=== PATIENT | male | born 1950 | race Caucasian/White ===

== ENCOUNTER → 2016-08-17 | Outpatient (CLI) | payer MEDICARE ==
--- NOTE | 2016-08-17 12:57 | ECHOF ---
Referral Reason:HTN I10, TIA G45.9 MEASUREMENTS -------- HEIGHT: 172.7 cm WEIGHT: 89.4 kg BP: RVIDd: 3.0 cm (< 3.3) IVSd: 1.3 cm (0.6 - 1.1) LVIDd: 4.8 cm (3.9 - 5.3) LVPWd: 1.2 cm (0.6 - 1.1) IVSs: 1.7 cm LVIDs: 3.5 cm LVPWs: 1.4 cm LA Diam: 4.2 cm (2.7 - 3.8) LAESV Index (A-L): 41.46 ml/m Ao Diam: 3.0 cm (2.0 - 3.7) AV Cusp: 1.4 cm (1.5 - 2.6) LA Diam: 4.3 cm (2.7 - 3.8) MV EXCURSION: 20.694 mm (> 18.000) MV EF SLOPE: 40 mm/s (70 - 150) EPSS: 0.5 cm AV maxP.57 mmHg AV meanP.88 mmHg RAP: 5.00 mmHg RVSP: 19.00 mmHg FINDINGS -------- Atrial fibrillation. This was a technically adequate study. There is mild concentric left ventricular hypertrophy. Overall left ventricular systolic function is low-normal with, an EF between 50 - 55 %. The right ventricle is normal in size. The right atrial size is normal. Mild aortic stenosis with peak/mean pressure gradient of 19.57mmHg / 9.88mmHg , the aortic valve area by continuity equation is 1.5cm. Mild mitral annular calcification present. Mild mitral regurgitation is present. Mild tricuspid regurgitation present. There is no evidence of pulmonary hypertension. The right ventricular systolic pressure, as measured by Doppler, is 19.00mmHg. There is no pulmonic regurgitation present. The aortic root size is normal. There is a trivial pericardial effusion present. CONCLUSIONS -------- 1. Atrial fibrillation. 2. The aortic root size is normal. 3. There is a trivial pericardial effusion present. 4. There is mild concentric left ventricular hypertrophy. 5. Overall left ventricular systolic function is low-normal with, an EF between 50 - 55 %. 6. Mild aortic stenosis with peak/mean pressure gradient of 19.57mmHg / 9.88mmHg , the aortic valve area by continuity equation is 1.5cm. 7. Mild mitral annular calcification present. 8. Mild mitral regurgitation is present. 9. Mild tricuspid regurgitation present. 10. There is no evidence of pulmonary hypertension. 11. The right ventricular systolic pressure, as measured by Doppler, is 19.00mmHg. BIOCHEMISTRY TECHNOLOGIST: Vonnie Orellana RDCS
--- NOTE | 2016-08-17 14:32 | US ---
EXAMINATION TYPE: US carotid duplex BILAT DATE OF EXAM: 08/17/2016 12:11 PM COMPARISON: NONE CLINICAL HISTORY: Episode of disorientation last about 45 minutes, TIA EXAM MEASUREMENTS: Grayscale, color Doppler, spectral Doppler imaging performed of the carotid arteri es. RIGHT: Peak Systolic Velocity (PSV) cm/sec ----- Right CCA: 88.6 ----- Right ICA: 54.7 ----- Right ECA: 78.9 ICA/CCA ratio: 0.6 RIGHT: End Diastole cm/sec ----- Right CCA: 24.6 ----- Right ICA: 22.1 ----- Right ECA: 17.8 LEFT: Peak Systolic Velocity (PSV) cm/sec ----- Left CCA: 74.0 ----- Left ICA: 76.3 ----- Left ECA: 96.3 ICA/CCA ratio: 1.0 LEFT: End Diastole cm/sec----- Left CCA: 28.9 ----- Left ICA: 76.3 ----- Left ECA: 96.3 VERTEBRALS (direction of flow): Right Vertebral: Antegrade Left Vertebral: Antegrade Atheromatous plaque is present at the carotid bulbs bilaterally. An arrhythmia is suspected. IMPRESSION: No hemodynamically significant stenosis of the proximal internal carotid arteries bilate rally by Doppler criteria, and indirect measurement of carotid stenosis. The carotid bulb on the r ight did show a systolic velocity drop to 36 cm/s at peak systole. Carotid CTA could be performed for additional evaluation as indicated. Criteria for Assigning % of Stenosis / Diameter reduction (Estimation based on the indirect measurements of the internal carotid artery velocities (ICA PSV). 1. Normal (no stenosis)=ICA PSV < 125 cm/s: ratio < 2.0: ICA EDV<40 cm/s. 2. Less than 50% stenosis=ICA PSV < 125 cm/s: ratio < 2.0: ICA EDV<40 cm/s. 3. 50 to 69% stenosis=ICA PSV of 125 to 230 cm/s: ration 2.0 ? 4.0: ICA EDV 40-100 cm/s. 4. Greater than 70% stenosis to near occlusion= ICA PSV > 230 cm/s: ratio > 4.0: ICA EDV > 100 cm/s. 5. Near occlusion= ICA PSV velocities may be low or undetectable: variable ratio and ICA EDV. 6. Total occlusion=unable to detect flow.
== END ==
LOC: RADECHMAIN 11:23
PROVIDERS: ATTEND Family Medicine
DX: I65.23 Occlusion and stenosis of bilateral carotid arteries (principal); I51.7 Cardiomegaly; I35.0 Nonrheumatic aortic (valve) stenosis; I08.1 Rheumatic disorders of both mitral and tricuspid valves; I10 Essential (primary) hypertension
CPT/HCPCS: 93306; 93880

== ENCOUNTER → 2016-08-20 | Outpatient (CLI) | payer MEDICARE ==
--- NOTE | 2016-08-20 14:30 | XR ---
EXAMINATION TYPE: XR cervical spine comp DATE OF EXAM: 08/20/2016 2:13 PM COMPARISON: NONE HISTORY: Radiculopathy Odontoid, frontal, lateral, and bilateral oblique views of the cervical spine are submitted. The odontoid is intact. There are no compression deformities. The prevertebral soft tissue structur es are within normal limits. Mild hypertrophic changes at C4-5 and C5-C6. Calcification soft tissue the neck compatible carotid artery calcification. Severe degenerative disc disease C6-C7. IMPRESSION: 1. Multilevel degenerative disc disease with severe changes at C6-C7. Consider follow-up MRI..
== END | disposition home or self-care (01) ==
LOC: RADXRMAIN 13:43
PROVIDERS: ATTEND Family Medicine
DX: M50.123 Cervical disc disorder at C6-C7 level with radiculopathy (principal)
CPT/HCPCS: 72050

== ENCOUNTER → 2017-01-06 | Outpatient (CLI) | payer MEDICARE ==
--- NOTE | 2017-01-06 21:56 | MR ---
EXAMINATION TYPE: MR cervical spine wo con DATE OF EXAM: 01/06/2017 6:39 PM COMPARISON: NONE HISTORY: neck pain with pain in both arms and swelling of Left Hand TECHNIQUE: Multiplanar, multisequence images of the cervical spine were acquired. C2-C3: No evidence for degenerative disc disease. No disc bulge/herniation or protrusion. No Canal stenosis. Foramina are patent bilaterally. C3-C4: No focal disc herniation or significant disc bulge is evident. No spinal canal stenosis presen t. Mild right foraminal narrowing from uncovertebral joint hypertrophy is present. C4-C5: Broad-based disc bulge is present with anterior thecal sac contact. Small central protrusion i s present with moderate anterior thecal sac compression and cord contact. Cord deformity is not ident ified. No spinal canal stenosis is present. There is moderate right and mild left foraminal narrowing . C5-C6: Broad-based disc bulge has moderate anterior thecal sac compression. Cord contact is present. Some cord flattening may be present. No AP spinal canal stenosis present. Moderate to severe bilatera l foraminal narrowing is present. Signal within the spinal cord is normal through this level. C6-C7: Broad-based disc bulge is present. This is greater into the left paracentral region in the rig ht paracentral region. This has moderate anterior thecal sac compression. Cord contact is present. So me cord flattening appears to be present. No spinal canal stenosis is present. Severe bilateral baldev inal narrowing is present. C7-T1: No evidence for degenerative disc disease. No disc bulge/herniation or protrusion. No Canal stenosis. Foramina are patent bilaterally. Cervical segments are intact. There is normal alignment. Cervical spinal cord is of normal signal. Craniovertebral junction relationships are within normal limits. IMPRESSION: 1. Disc bulging with cord contact and some cord flattening present C6-7 and left paracentral canal, C 5-6, C4-5. 2. Foraminal narrowing discussed above. 3. Disc desiccation throughout the cervical spine
== END | disposition home or self-care (01) ==
LOC: RADMRIMAIN 18:07
PROVIDERS: ATTEND Family Medicine
DX: M99.71 Connective tissue and disc stenosis of intervertebral foramina of cervical region (principal); M50.121 Cervical disc disorder at C4-C5 level with radiculopathy
CPT/HCPCS: 72141

== ENCOUNTER → 2017-01-17 | Outpatient (CLI) | payer MEDICARE ==
--- NOTE | 2017-01-17 15:35 | XR ---
EXAMINATION TYPE: XR hand complete LT DATE OF EXAM: 01/17/2017 CLINICAL HISTORY: Left hand joint pain for 6 to 8 weeks. TECHNIQUE: Frontal, lateral and oblique images of the left hand are obtained. COMPARISON: None. FINDINGS: There is no acute fracture/dislocation evident in the left hand. There is some spurring an d joint space loss first interphalangeal joint. Mild to moderate soft tissue swelling over second dig it is present. Mild soft tissue swelling third digit is seen. There is subchondral cyst in the scapho id suspected proximally. IMPRESSION: There is soft tissue swelling most prominent in the second finger noted.
== END ==
LOC: RADXRMAIN 15:12
PROVIDERS: ATTEND Family Medicine
DX: M79.89 Other specified soft tissue disorders (principal)

== ENCOUNTER → 2017-07-13 | Outpatient (CLI) | payer MEDICARE ==
--- NOTE | 2017-07-13 11:30 | US ---
EXAMINATION TYPE: US duplex aorta DATE OF EXAM: 07/13/2017 COMPARISON: NONE CLINICAL HISTORY: Z13.9 SCREENING. EXAM MEASUREMENTS: Abdominal Aorta: Proximal: 2.6 x 2.2 cm Mid: 1.9 x 1.9 cm Distal: 1.9 x 1.8 cm Bifurcation: right 1.3 left 1.2 technically difficult exam due to body habitus. IMPRESSION: Suboptimal study without ultrasound evidence for AAA.
== END | disposition home or self-care (01) ==
LOC: RADUSWWP 10:05
PROVIDERS: ATTEND Family Medicine
DX: Z13.6 Encounter for screening for cardiovascular disorders (principal)
CPT/HCPCS: 93979

== ENCOUNTER → 2018-06-05 | Outpatient (CLI) | payer MEDICARE ==
--- NOTE | 2018-06-05 16:04 | CT ---
EXAMINATION TYPE: CT facial bones w con DATE OF EXAM: 06/05/2018 COMPARISON: None HISTORY: Left sided cystic mass. CT DLP: 763 mGycm Automated exposure control for dose reduction was used. CONTRAST: CT scan of the facial bones is performed with IV Contrast, patient injected with 100 mL of Isovue M30 0. TECHNIQUE: CT scan of the sinuses is performed without contrast, axial images are obtained, coronal r eformatted images are also reviewed. FINDINGS: There is an expansile complex fluid attenuated mass centered within the left maxillary sinu s that creates cortical thinning without breakthrough of the inferior wall, medial wall, and lateral wall. This creates mass effect upon the left nasopharynx and muscles of mastication. There is also im pression upon the inferior orbital wall although the globes and extraocular muscles remain symmetric. This mass measures approximately 3.5 x 4.6 x 6.1 cm in transverse by anterior posterior by craniocau errol dimension. A There is also calcified portion medially. There is scant mucosal thickening within the left ethmoid sinuses. Remaining paranasal sinuses and vi sualized portions of the mastoid air cells are well aerated. IMPRESSION: Large expansile complex fluid attenuated mass expanding the left maxillary sinus with mass effect and obstruction of the left nasopharynx and inferior orbital wall. Primary differential consideration is for a complex mucocele.
== END | disposition home or self-care (01) ==
LOC: RADCTMAIN 14:22
PROVIDERS: ATTEND Otolaryngology
DX: J39.2 Other diseases of pharynx (principal); J32.0 Chronic maxillary sinusitis
CPT/HCPCS: 70487; Q9967

== ENCOUNTER 2021-07-07 09:18 | Day surgery (SDC) | payer MEDICARE ==
[2021-07-03 10:53] VITALS: BMI 30.7
[~2021-07-07 09:18] MED LIST: LIDOCAINE 1% (10MG/ML) FOR IV START INTRADERMA PRN
[2021-07-07 09:48] VITALS: TEMP 97.9
[2021-07-07] MEDS: LACTATED RINGERS 1,000 ML IV SCH ×2 (10:10→10:26)
[2021-07-07] MEDS ORDERED: PROPOFOL 10 MG/ML 20 ML VIAL IV ONE (10:28)
[2021-07-07] MEDS ORDERED: LIDOCAINE 1% INJ 10MG/ML (20 ML MDV) ONE (10:28)
--- NOTE | 2021-07-07 10:35 | P.GSHP ---
History of Present Illness H&P Date: 07/07/21 Chief Complaint: Colon cancer screening 71-year-old male here today for colonoscopy. No bowel related complaints. No family history of colon cancer. Last colonoscopy normal. Past Medical History Past Medical History: Hyperlipidemia, Hypertension, Osteoarthritis (OA), Prostate Disorder, Thyroid Disorder Additional Past Medical History / Comment(s): "EKG is always abnormal", enlarged prostate History of Any Multi-Drug Resistant Organisms: None Reported Past Surgical History: Back Surgery, Hernia Repair Additional Past Surgical History / Comment(s): colonoscopy Past Anesthesia/Blood Transfusion Reactions: No Reported Reaction Smoking Status: Former smoker - Past Family History Father Family Medical History: Cancer Additional Family Medical History / Comment(s): prostate Medications and Allergies Home Medications Medication Instructions Recorded Confirmed Type ALPRAZolam [Xanax] 0.5 mg PO HS PRN 07/03/21 07/03/21 History Dutasteride [Avodart] 0.5 mg PO HS 07/03/21 07/03/21 History HYDROcodone/APAP 10-325MG [[place] 1 tab PO BID PRN 07/03/21 07/03/21 History 10-325] Levothyroxine Sodium [Synthroid] 50 mcg PO DAILY 07/03/21 07/07/21 History Metoprolol Tartrate [Lopressor] 25 mg PO BID 07/03/21 07/07/21 History Simvastatin [Zocor] 40 mg PO DAILY 07/03/21 07/03/21 History Tamsulosin [Flomax] 0.4 mg PO DAILY 07/03/21 07/03/21 History Valsartan/Hydrochlorothiazide 1 each PO DAILY 07/03/21 07/03/21 History [Valsartan-Hctz 320-25 mg Tab] hydroCHLOROthiazide 25 mg PO DAILY 07/03/21 07/03/21 History Allergies Allergy/AdvReac Type Severity Reaction Status Date / Time No Known Allergies Allergy Verified 07/03/21 10:39 Surgical - Exam Vital Signs Temp Pulse Resp BP Pulse Ox 97.9 F 56 L 18 156/79 96 07/07/21 09:44 07/07/21 09:44 07/07/21 09:44 07/07/21 09:44 07/07/21 09:44 Physical exam: General: Well-developed, well-nourished HEENT: Normocephalic, sclerae nonicteric Abdomen: Nontender, nondistended Extremities: No edema Neuro: Alert and oriented Assessment and Plan (1) Colon cancer screening Narrative/Plan: Will proceed with colonoscopy at this time Current Visit: Yes Status: Acute Code(s): Z12.11 - ENCOUNTER FOR SCREENING FOR MALIGNANT NEOPLASM OF COLON SNOMED Code(s): 223139699
--- NOTE | 2021-07-07 10:45 | P.PCN ---
Date of Procedure: 07/07/21 Procedure(s) Performed: PREOPERATIVE DIAGNOSIS: Colon cancer screening POSTOPERATIVE DIAGNOSIS: Diverticulosis PROCEDURE: Colonoscopy ANESTHESIA: MAC SURGEON: Tj Boateng M.D. SPECIMENS: None ENDOSCOPIC PROCEDURE: The patient was placed on the endoscopy table in the left decubitus position. The Olympus colonoscope was inserted into the anus and passed under direct visualization to the base of the cecum. The appendiceal orifice was visualized. From that point the scope was slowly withdrawn inspe cting all surfaces carefully. There were no neoplastic inflammatory or polypoid lesions throughout the cecum, ascending, transverse, descending, sigmoid and rectum. There was mild left-sided diverticulosis noted. Digital rectal examination was normal. Prostatic examination was normal. The patient was taken to the recovery room in stable condition per anesthesia guidelines. RECOMMENDATIONS: Resume diet. Follow-up colonoscopy 10 years.
[2021-07-07 10:56] VITALS: BP 113/61; PULSE 45; RESP 16
== END 2021-07-07 11:33 | disposition home or self-care (01) ==
LOC: ORWHC2ENDO 09:18
PROVIDERS: ATTEND Surgery
DX: Z12.11 Encounter for screening for malignant neoplasm of colon (principal); K57.30 Diverticulosis of large intestine without perforation or abscess without bleeding; E78.5 Hyperlipidemia, unspecified; I10 Essential (primary) hypertension; M19.90 Unspecified osteoarthritis, unspecified site; N40.0 Benign prostatic hyperplasia without lower urinary tract symptoms; F41.9 Anxiety disorder, unspecified; E07.9 Disorder of thyroid, unspecified; Z87.891 Personal history of nicotine dependence; Z80.42 Family history of malignant neoplasm of prostate; Z79.890 Hormone replacement therapy; Z79.899 Other long term (current) drug therapy
CPT/HCPCS: J2001; J2704; G0121

== ENCOUNTER → 2022-04-30 | Outpatient (CLI) | payer MEDICARE ==
--- NOTE | 2022-05-01 10:10 | CA ---
Transthoracic Echo Report Name: Aashish Montelongo Age: 72 Gender: M : 1950 Exam Date: 04/30/2022 11:32 Exam Location: [place] [facility] Ht (in): 68 Wt (lb): 200 Ordering Physician: Randy Prado MD Attending/Referring Phys: [id number], Johan [employer] Consultant Silvia Shelby RDCS Procedure CPT: Indications: I35.0 NONRHEUMATIC AORTIC STENOSIS Cardiac Hx: Technical Quality: Fair Contrast 1: Total Dose (mL): Contrast 2: Total Dose (mL): MEASUREMENTS (Male / Female) Normal Values 2D ECHO LV Diastolic Diameter PLAX 4.3 cm 4.2 - 5.9 / 3.9 - 5.3 cm LV Systolic Diameter PLAX 2.7 cm IVS Diastolic Thickness 1.6 cm 0.6 - 1.0 / 0.6 - 0.9 cm LVPW Diastolic Thickness 1.8 cm 0.6 - 1.0 / 0.6 - 0.9 cm LV Relative Wall Thickness 0.8 RV Internal Dim ED PLAX 3.3 cm LVOT Diameter 2.0 cm LA Volume 64.4 cm??? 18 - 58 / 22 - 52 cm??? M-MODE Aortic Root Diameter MM 3.0 cm LA Systolic Diameter MM 4.5 cm LA Ao Ratio MM 1.5 AV Cusp Separation MM 0.9 cm DOPPLER AV Peak Velocity 430.5 cm/s AV Peak Gradient 74.1 mmHg AV Mean Velocity 313.7 cm/s AV Mean Gradient 44.7 mmHg AV Velocity Time Integral 96.0 cm AI Peak Velocity 336.6 cm/s AI Peak Gradient 45.3 mmHg AI Pressure Half Time 833.6 ms LVOT Peak Velocity 88.2 cm/s LVOT Peak Gradient 3.1 mmHg LVOT Velocity Time Integral 21.6 cm LVOT Stroke Volume 70.7 cm??? LVOT Stroke Volume Index 34.6 ml/m??? LVOT Cardiac Index 1672.9 cm???/min???m??? AV Area Cont Eq vti 0.7 cm??? AV Area Cont Eq pk 0.7 cm??? MV Area PHT 2.7 cm??? Mitral E Point Velocity 88.6 cm/s Mitral A Point Velocity 119.4 cm/s Mitral E to A Ratio 0.7 MV Deceleration Time 286.2 ms MV E' Velocity 5.1 cm/s Mitral E to MV E' Ratio 17.5 TR Peak Velocity 169.1 cm/s TR Peak Gradient 11.4 mmHg Right Ventricular Systolic Press 16.4 mmHg FINDINGS Left Ventricle Moderately increased left ventricular wall thickness. No obvious regional wall motion abnormalities. Left ventricular ejection fraction is estimated at 55 %. Right Ventricle Mild right ventricular dilatation. Right ventricular systolic pressure within normal limits. Right Atrium Normal right atrial size. Left Atrium Mildly increased left atrial volume. Mildly increased left atrial area. Mitral Valve Mild mitral annular calcification. Mitral valve thickened. [id number] mitral regurgitation. Aortic Valve Severe aortic stenosis with a peak velocity of 4 m/s, peak gradient 74 mmHg, mean gradient 45 mmHg, and estimated aortic valve area of 0.7cm???. Mild aortic regurgitation. Tricuspid Valve Structurally normal tricuspid valve. Mild tricuspid regurgitation. Pulmonic Valve Trace pulmonic regurgitation. Pericardium No pericardial effusion. Aorta Normal size aortic root and proximal ascending aorta. CONCLUSIONS Normal left ventricular dimension and systolic function Severe aortic stenosis [id number] mitral regurgitation Previewed by: Dr. Kamran Santos MD (Electronically Signed) Final Date: 01 May 2022 10:09
== END | disposition home or self-care (01) ==
LOC: RADECHMAIN 11:25
PROVIDERS: ATTEND Family Medicine
DX: I08.3 Combined rheumatic disorders of mitral, aortic and tricuspid valves (principal)
CPT/HCPCS: 93306

== ENCOUNTER 2023-04-13 09:37 | Day surgery (SDC) | payer MEDICARE, OTHER ==
[2023-04-08 12:37] VITALS: BMI 31.9
[~2023-04-13 09:37] MED LIST changes: +ALPRAZolam 0.25 MG TAB PO PRN; +ALPRAZolam 0.5 MG TAB PO PRN; +ASPIRIN 325 MG TAB PO ONE; +ATORVASTATIN 80 MG TAB PO ONE; +HEPARIN SODIUM,PORCINE (1 ML) 2,500 UNIT in SODIUM CHLORIDE 0.9% 250 ML IRRIGATION PRN; +HEPARIN SODIUM,PORCINE 10,000 UNIT in SODIUM CHLORIDE 0.9% 1,000 ML IRRIGATION PRN; -LIDOCAINE 1% (10MG/ML) FOR IV START INTRADERMA PRN; +NITROGLYCERIN SL TABS 0.4 MG TAB SUBLINGUAL PRN; +SODIUM CHLORIDE 0.9% 1,000 ML in EMPTY BAG 1 BAG IV SCH
[2023-04-13 10:04] VITALS: RESP 16; TEMP 97.9
[2023-04-13] MEDS ORDERED: SODIUM CHLORIDE 0.9% 1,000 ML IV ONE ×2 (10:05→10:41)
[2023-04-13 10:12] LABS: Basophils % (A) 1 %; Eosinophils # (A) 0.3 k/uL (0-0.7); Eosinophils % (A) 4 %; HGB 15.7 gm/dL (13.0-17.5); Lymphocytes # (A) 2.1 k/uL (1.0-4.8); Lymphocytes % (A) 37 %; MCH 33.3 pg (25.0-35.0); MCHC 35.6 g/dL (31.0-37.0); MCV 93.6 fL (80.0-100.0); Mean Platelet Volume 7.2; Monocytes # (A) 0.4 k/uL (0-1.0); Monocytes % (A) 7 %; Neutrophils # (A) 2.7 k/uL (1.3-7.7); Neutrophils % (A) 47 %; Platelet Count 285 k/uL (150-450); RBC 4.69 m/uL (4.30-5.90); RDW 12.4 % (11.5-15.5); WBC 5.7 k/uL (3.8-10.6)
[2023-04-13] MEDS ORDERED: VERAPAMIL 2.5 MG/ML 2 ML AMP ONE (10:17)
[2023-04-13 10:22] LABS: African American GFR (CKD) >90 (>60 ml/min/1.73 sqM); Anion Gap 10 mmol/L; Blood Urea Nitrogen 27 mg/dL (9-20); Carbon Dioxide 28 mmol/L (22-30); Chloride 98 mmol/L (98-107); Glucose 126 mg/dL (74-99); Non-African American GFR(CKD) >90 (>60 ml/min/1.73 sqM); Sodium 136 mmol/L (137-145)
[2023-04-13] MEDS ORDERED: fentaNYL (PF) 50 MCG/ML 2 ML AMP ONE ×2 (10:27→10:35)
[2023-04-13] MEDS ORDERED: MIDAZOLAM 2 MG/2 ML VIAL IVP ONE ×2 (10:30→10:37)
[2023-04-13] MEDS: fentaNYL (PF) 50 MCG/ML 2 ML AMP IVP ONE ×2 (10:30→10:33)
[2023-04-13] MEDS: MIDAZOLAM 2 MG/2 ML VIAL IVP ONE ×2 (10:31→10:33)
[2023-04-13 10:36] LABS: Potassium 3.8 mmol/L (3.5-5.1)
[2023-04-13] MEDS ORDERED: fentaNYL (PF) 50 MCG/ML 2 ML AMP IVP ONE (10:36)
--- NOTE | 2023-04-13 10:53 | P.TEE ---
Description of Procedure(s): Procedure performed: Transesophageal Echocardiogram with color flow doppler, pulsed wave doppler and continuous wave doppler, moderate conscious sedation Moderate conscious sedation: Moderate conscious sedation was supplied with direct supervision of myself using Versed and Fentanyl. Complications: none Indications: Aortic stenosis PROCEDURE: After the risks, benefits and alternatives of the above mentioned procedure was explained in detail with the patient, informed consent was obtained. Patient was brought to the lab in a fasting state. Patient was given IV Versed and Fentanyl for sedation. The throat was sprayed with Hurricane to anesthetize the throat. A lubricated Omni probe was then introduced into the esophagus and stomach and multiple views were obtained. 2D echo with color flow doppler, pulsed wave doppler and continuous wave doppler was utilized. There was some color flow artifact however able to perform the CRESENCIO. Agitated saline bubbles were injected to assess for any intra-atrial shunt. The probe was then removed. Patient tolerated the procedure well. Patient was transferred to the post procedure area in stable and satisfactory condition. FINDINGS: 1. The aortic valve is tricuspid with severe aortic stenosis with mean gradient of 54mmHg and max gradient of 76mmHg. DANIEL by planimetry of 0.8cm2. There is mild aortic regurgitation 2. The mitral valve appears be normal with mild mitral regurgitation. 3. Tricuspid valve is normal with mild tricuspid regurgitation. 4. The interatrial septum is intact. No evidence of PFO. 5. Left atrial appendage is free of clot. 6. Left ventricular ejection fraction 55-60%
[2023-04-13] MEDS ORDERED: LIDOCAINE 1% INJ 10MG/ML (5 ML VIAL-PF) SQ ONE (11:05)
[2023-04-13] MEDS ORDERED: VERAPAMIL SYRINGE (5 MG/10 ML) INTRAARTER ONE (11:06)
[2023-04-13] MEDS ORDERED: HEPARIN SODIUM 1,000 UN/ML (10ML VL) IV ONE (11:07)
[2023-04-13] MEDS ORDERED: IOPAMIDOL-370 100ML BTL INJ ONE (11:12)
[2023-04-13] MEDS ORDERED: ASPIRIN 81 MG PO PRN (11:22)
[2023-04-13] MEDS ORDERED: HYDROcodone/APAP 10-325MG 1 EACH TAB PO PRN (11:22)
[2023-04-13] MEDS ORDERED: RX INFO: IV CONTRAST WAS GIVEN 1 EACH MISC MISCELLANE PRN (11:23)
[2023-04-13] MEDS ORDERED: SODIUM CHLORIDE 0.9% 1,000 ML IV SCH (11:30)
--- NOTE | 2023-04-13 13:47 | P.CARDCATH ---
Description of Procedure: PROCEDURES PERFORMED: Left heart catheterization, bilateral coronary angiography, ultrasound guided arterial access INDICATION: Severe aortic stenosis CONSENT:I have discussed the risks, benefits and alternative therapies for the above-mentioned procedure and for both sedation/analgesia as well as necessary blood product administration, if indicated, as they pertain to this patient. The patient has indicated understanding and acceptance of the risks and procedures discussed. PROCEDURE: After the risks, benefits and alternatives of the above mentioned procedure explained in detail with the patient, informed consent was obtained. Patient was taken to the catheterization lab and prepped and draped in usual fashion. Ultrasound guidance was used to assess for arterial access. 1% lidocaine was used to anesthetize the right radial artery. A 6-Maldivian sheath was placed in the right radial artery using modified Seldinger technique and ultrasound guidance. Left coronary angiography was performed with a 5-Maldivian JL 3.5 catheter and right coronary angiography was performed with a 6-Maldivian AR2 catheter in various views. Using a 5Fr FR5 catheter and a J wire, the valve was able to be crossed and pressure meaurments were obtained. The right radial sheath was removed and a TR band was placed with hemostasis achieved. The patient tolerated the procedure well. Patient was transported back to the post catheterization holding area in stable condition. Conscious Sedation: Patient was monitored under the direct supervision of myself for conscious sedation using Versed and fentanyl for a total duration of 13 minutes HEMODYNAMICS: Aorta: 129/78 LV: 185/5, LVEDP 15, peak to peak gradient of around 60 with some variability with frequent PVCs, mean gradient 38mmHg SELECTIVE CORONARY ARTERIOGRAPHY: LEFT MAIN: The left main is a large caliber vessel which bifurcates into the LAD and a raums. There is a 30% left main stenosis. LEFT ANTERIOR DESCENDING CORONARY ARTERY: LAD is a large caliber vessel which wraps around to the apex. There are mild luminal irregularities RAMUS INTERMEDIUS: The ramus is a small to moderate caliber vessel without significant stenosis ANAMALOUS CIRCUMFLEX ARTERY FROM THE RIGHT CORONARY CUSP: Crcumflex is a moderate caliber vessel without significant stenosis. RIGHT CORONARY ARTERY: The right coronary artery is a moderate to large caliber vessel which gives off the PDA and PLV and is dominant. There are mild luminal irregularities FINAL IMPRESSION: 1. 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 Severe aortic stenosis PLAN: 1. Aggressive risk factor modification per most recent ACC/AHA guidelines. 2. Followup in the office in 1-2 weeks
[2023-04-13 15:22] VITALS: BP 145/74; PULSE 60
[2023-04-13] MEDS ORDERED: FINASTERIDE 5 MG TAB PO SCH (21:00)
[2023-04-14] MEDS ORDERED: LEVOTHYROXINE 50 MCG TAB PO SCH (06:30)
[2023-04-14] MEDS ORDERED: allopurinoL 100 MG TAB PO SCH (09:00)
[2023-04-14] MEDS ORDERED: hydroCHLOROthiazide 25 MG TAB PO SCH (09:00)
[2023-04-14] MEDS ORDERED: TAMSULOSIN 0.4 MG CAP.ER.24H PO SCH (09:00)
[2023-04-14] MEDS ORDERED: ATORVASTATIN 40 MG TAB PO SCH (09:00)
[2023-04-14] MEDS ORDERED: VALSARTAN 160 MG TAB PO SCH (09:00)
== END 2023-04-13 15:21 | disposition home or self-care (01) ==
LOC: CATHCVL 09:37
PROVIDERS: ATTEND Internal Medicine
DX: I08.3 Combined rheumatic disorders of mitral, aortic and tricuspid valves (principal); I25.10 Atherosclerotic heart disease of native coronary artery without angina pectoris; I10 Essential (primary) hypertension; E78.5 Hyperlipidemia, unspecified; E03.9 Hypothyroidism, unspecified; I49.3 Ventricular premature depolarization; F17.210 Nicotine dependence, cigarettes, uncomplicated; Z79.891 Long term (current) use of opiate analgesic; Z79.83 Long term (current) use of bisphosphonates; Z79.899 Other long term (current) drug therapy
CPT/HCPCS: 93458; 93312; 93320; 93325; 80048; 85025; C1769; C1894; J2250; J2001; J3010; J1644; Q9967; 76937

== ENCOUNTER → 2023-07-05 | Outpatient (CLI) | payer MEDICARE, OTHER ==
[2023-07-05 10:22] LABS: Basophils % (A) 1 %; Eosinophils # (A) 0.1 k/uL (0-0.7); Eosinophils % (A) 1 %; HGB 15.4 gm/dL (13.0-17.5); Lymphocytes # (A) 1.1 k/uL (1.0-4.8); Lymphocytes % (A) 21 %; MCH 32.9 pg (25.0-35.0); MCHC 35.8 g/dL (31.0-37.0); Mean Platelet Volume 7.1; Monocytes # (A) 0.4 k/uL (0-1.0); Monocytes % (A) 6 %; Neutrophils # (A) 3.9 k/uL (1.3-7.7); Neutrophils % (A) 69 %; Platelet Count 309 k/uL (150-450); RBC 4.67 m/uL (4.30-5.90); RDW 12.2 % (11.5-15.5); WBC 5.6 k/uL (3.8-10.6)
[2023-07-05 10:34] LABS: ALT 53 U/L (4-49); AST 37 U/L (17-59); African American GFR (CKD) >90 (>60 ml/min/1.73 sqM); Albumin 4.2 g/dL (3.5-5.0); Albumin/Globulin Ratio 1.6; Alkaline Phosphatase 64 U/L (38-126); Anion Gap 9 mmol/L; Blood Urea Nitrogen 23 mg/dL (9-20); Calcium 9.4 mg/dL (8.4-10.2); Carbon Dioxide 30 mmol/L (22-30); Chloride 98 mmol/L (98-107); Globulin 2.6 g/dL; Glucose 136 mg/dL (74-99); Non-African American GFR(CKD) >90 (>60 ml/min/1.73 sqM); Sodium 137 mmol/L (137-145); Total Bilirubin 0.8 mg/dL (0.2-1.3); Total Protein 6.8 g/dL (6.3-8.2)
[2023-07-05 10:42] LABS: NT-Pro-B-Type Natriuretic Pept 460 pg/mL
[2023-07-05 10:48] LABS: Partial Thromboplastin Time 23.9 sec (22.0-30.0); Prothrombin Time 11.1 sec (10.0-12.5)
[2023-07-05 11:11] LABS: Appearance,Urine Clear (Clear); Bacteria,Urine Rare /hpf; Bilirubin,Urine Negative (Negative); Blood,Urine Trace (Negative); Color,Urine Colorless; Glucose,Urine (UA) Negative (Negative); Ketones,Urine Negative (Negative); Leukocyte Esterase,Urine Negative (Negative); Mucus,Urine Rare /hpf; Nitrite,Urine Negative (Negative); Protein,Urine Negative (Negative); RBC,Urine <1 /hpf (0-5); Specific Gravity,Urine 1.007 (1.001-1.035); Squamous Epithelial Cell,Urine <1 /hpf (0-4); Urobilinogen,Urine <2.0 mg/dL (<2.0)
[2023-07-05 11:12] LABS: Magnesium 1.9 mg/dL (1.6-2.3)
[2023-07-05 18:41] LABS: Chol/HDL Ratio 3.62 Ratio; LDL Cholesterol,Calculated 74.6 mg/dL (0.0-131.0)
[2023-07-05 19:33] LABS: Hepatitis A Antibody IgM Nonreactive; Hepatitis B Core IgM Nonreactive; Hepatitis B Surface Antigen Nonreactive; Hepatitis C IgG Antibody Nonreactive
--- NOTE | 2023-07-05 22:02 | CT ---
EXAMINATION TYPE: CT TAVR Planning DATE OF EXAM: 07/05/2023 HISTORY: 73-year-old male I35.1, TAVR planning. CT DLP: 2407.1 mGycm Automated Exposure Control for Dose Reduction was Utilized. CONTRAST: CT scan of the chest, abdomen and pelvis is performed with IV Contrast, patient injected with 125ml m L of Isovue 370. COMPARISON: TECHNIQUE: Helical imaging obtained through the chest, abdomen and pelvis during arterial phase filiberto nuvia administration of radiographic contrast intravenously. FINDINGS: See report from [facility] regarding preprocedural planning CHEST: Lower Neck and Thyroid: No significant findings Lungs: Several subtle mosaic attenuation suggests small airways disease. No consolidation or pleural effusion. Central Airway: No significant findings Pleura: No significant findings Pulmonary Arteries: The right and left main pulmonary arteries are enlarged measuring up to 3.1 cm. F indings suggest underlying pulmonary hypertension. Heart and Pericardium: No significant findings Lymph Nodes: No significant findings Mediastinum & Esophagus: No significant findings ABDOMEN/PELVIS: Please note arterial phase of the imaging limits detailed evaluation of the solid abdominal organs. Liver: Diffusely diminished attenuation and mild thyromegaly at 18.6 cm. Portal venous system is kwan nt. No biliary ductal dilatation. Spleen: No significant findings Kidneys: Punctate 3 mm nonobstructive left renal calculus and a couple on the right measuring up to 4 mm. A few bilateral renal cortical cysts measuring up to 2.1 cm on the right and 3.2 cm on the left. Adrenal Glands: No significant findings Pancreas: No significant findings Gallbladder: No significant findings Bowel and Mesentery: Small hiatal hernia including some mesenteric fat. No dilated small bowel, free fluid, or free air. Normal appendix. Generalized colonic diverticulosis more moderate within the prox imal to mid sigmoid colon. No pericolonic inflammatory change seen.r Lymph Nodes: No significant findings Urinary Bladder: No significant findings Pelvic Organs: Prostate gland enlarged at 4.6 cm wide. Slightly trabeculated bladder wall suggesting chronic bladder outlet obstruction and bladder wall hypertrophy. Patulous bilateral neural canals wit h a fat-containing indirect right inguinal hernia. 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 Moderate spondylotic change lower cindy mbar spine. Mild degenerative change of both hips. Degenerative changes bilateral SI joints. Other: Moderate atherosclerotic calcifications abdominal aorta. Other Lines/Tubes/Devices/Hardware: None IMPRESSION: 1. Findings which suggest some underlying small airways disease. Correlate for underlying pulmonary a rterial hypertension as well. 2. Hepatomegaly at 18.6 cm with a moderate to severe hepatic steatosis. 3. A couple nonobstructing bilateral renal calculi measuring up to 4 mm. 4. Generalized colonic diverticulosis, greatest in the sigmoid colon. 5. Prostatomegaly of 4.6 cm wide. Correlate with PSA values. Slightly trabeculated bladder wall may r eflect chronic bladder outlet obstruction. Fat-containing indirect right inguinal hernia.
== END | disposition home or self-care (01) ==
LOC: LABWHC1 09:31
PROVIDERS: ATTEND Thoracic Surgery (Cardiothoracic Vascular Surgery)
DX: Z01.818 Encounter for other preprocedural examination (principal); I35.1 Nonrheumatic aortic (valve) insufficiency; I35.0 Nonrheumatic aortic (valve) stenosis; E11.9 Type 2 diabetes mellitus without complications; E87.8 Other disorders of electrolyte and fluid balance, not elsewhere classified; N28.9 Disorder of kidney and ureter, unspecified; K76.0 Fatty (change of) liver, not elsewhere classified; N20.0 Calculus of kidney; K57.30 Diverticulosis of large intestine without perforation or abscess without bleeding; N40.0 Benign prostatic hyperplasia without lower urinary tract symptoms; N32.89 Other specified disorders of bladder; K40.90 Unilateral inguinal hernia, without obstruction or gangrene, not specified as recurrent; E78.5 Hyperlipidemia, unspecified; E07.9 Disorder of thyroid, unspecified; R58 Hemorrhage, not elsewhere classified; R35.0 Frequency of micturition; Z79.899 Other long term (current) drug therapy; Z79.01 Long term (current) use of anticoagulants
CPT/HCPCS: 94150; 83880; 80061; 80053; 80074; 84443; 83735; 85025; 85610; 85730; 81001; 87086; 83036; 71275; 36415 ×2; 74174; Q9967

== ENCOUNTER → 2023-07-25 | Outpatient (CLI) | payer MEDICARE, OTHER | END | disposition home or self-care (01) | LOC: LABWHC1 16:02 | PROVIDERS: ATTEND Thoracic Surgery (Cardiothoracic Vascular Surgery) | DX: I45.10 Unspecified right bundle-branch block (principal); I51.7 Cardiomegaly; I49.8 Other specified cardiac arrhythmias; R94.31 Abnormal electrocardiogram [ECG] [EKG]; R07.9 Chest pain, unspecified | CPT/HCPCS: 36415; 93005 ==

== ENCOUNTER → 2023-08-05 | Outpatient (CLI) | payer MEDICARE, OTHER ==
[2023-08-05 11:10] LABS: Partial Thromboplastin Time 22.7 sec (22.0-30.0); Prothrombin Time 11.2 sec (10.0-12.5)
[2023-08-05 15:56] LABS: Basophils # (A) 0.06 X 10*3/uL (0.00-0.10); Basophils % (A) 1.4 %; Eosinophils # (A) 0.12 X 10*3/uL (0.04-0.35); Eosinophils % (A) 2.8 %; HCT 42.9 % (39.6-50.0); HGB 15.5 g/dL (13.0-17.0); Lymphocytes # (A) 0.96 X 10*3/uL (0.90-5.00); Lymphocytes % (A) 22.7 %; MCH 32.9 pg (27.0-32.0); MCHC 36.1 g/dL (32.0-37.0); MCV 91.1 FL (80.0-97.0); Mean Platelet Volume 9.5 FL (9.5-12.2); Monocytes % (A) 9.5 %; NRBC Per 100 WBC 0 X 10*3/uL (0.00-0.01); Neutrophils # (A) 2.66 X 10*3/uL (1.80-7.70); Neutrophils % (A) 63.1 %; Platelet Count 238 X 10*3/uL (140-440); RBC 4.71 X 10*6/uL (4.40-5.60); RDW 12.3 % (11.5-14.5); WBC 4.22 X 10*3/uL (4.50-10.00)
[2023-08-05 16:15] LABS: ALT 33 U/L (10-49); AST 26 U/L (14-35); Albumin 4.2 g/dL (3.8-4.9); Albumin/Globulin Ratio 1.83 Ratio (1.60-3.17); Alkaline Phosphatase 54 U/L (41-126); BUN/Creat Ratio 26.22 Ratio (12.00-20.00); Blood Urea Nitrogen 23.6 mg/dL (9.0-27.0); Calcium 9.8 mg/dL (8.7-10.3); Carbon Dioxide 27.2 mmol/L (21.6-31.8); Chloride 101 mmol/L (96-109); Globulin 2.3 g/dL (1.6-3.3); Glucose 138 mg/dL (70-110); Potassium 3.5 mmol/L (3.5-5.5); Sodium 142 mmol/L (135-145); Total Bilirubin 0.5 mg/dL (0.3-1.2); Total Protein 6.5 g/dL (6.2-8.2)
== END | disposition home or self-care (01) ==
LOC: LABPAT 10:11
PROVIDERS: ATTEND Thoracic Surgery (Cardiothoracic Vascular Surgery)
DX: Z01.812 Encounter for preprocedural laboratory examination (principal); I35.0 Nonrheumatic aortic (valve) stenosis; Z79.899 Other long term (current) drug therapy; Z79.01 Long term (current) use of anticoagulants
CPT/HCPCS: 36415; 80053; 85025; 85610; 85730; 86850; 86900; 86901

== ENCOUNTER 2023-08-10 07:53 | Inpatient (IN) | payer MEDICARE, OTHER ==
[~2023-08-10 07:53] MED LIST changes: -ALPRAZolam 0.25 MG TAB PO PRN; -ALPRAZolam 0.5 MG TAB PO PRN; -ASPIRIN 325 MG TAB PO ONE; -ATORVASTATIN 80 MG TAB PO ONE; +GLYCOPYRROLATE 0.2 MG/ML 2 ML VIAL ONE; -HEPARIN SODIUM,PORCINE (1 ML) 2,500 UNIT in SODIUM CHLORIDE 0.9% 250 ML IRRIGATION PRN; -HEPARIN SODIUM,PORCINE 10,000 UNIT in SODIUM CHLORIDE 0.9% 1,000 ML IRRIGATION PRN; +HEPARIN SODIUM,PORCINE 10,000 UNIT/ML 1 ML VIAL ONE; +HYDROmorphone (PF) 1 MG/ML ONE; +LIDOCAINE 1% INJ 10MG/ML (20 ML MDV) ONE; +NEOSTIGMINE 1 MG/ML 10 ML VIAL ONE; -NITROGLYCERIN SL TABS 0.4 MG TAB SUBLINGUAL PRN; +NOREPINEPHRINE 1 MG/ML 4 ML VIAL IV ONE; +PROPOFOL 10 MG/ML 20 ML VIAL IV ONE; +PROTAMINE SULFATE 10 MG/ML 5 ML VIAL ONE; +ROCURONIUM 10 MG/ML (5 ML VIAL) IV ONE; -SODIUM CHLORIDE 0.9% 1,000 ML in EMPTY BAG 1 BAG IV SCH; +SUCCINYLCHOLINE CHLORIDE 200 MG/10 ML VIAL IV ONE; +fentaNYL (PF) 50 MCG/ML 2 ML AMP ONE
[2023-08-10] MEDS ORDERED: TRANEXAMIC ACID 2,000 MG in SODIUM CHLORIDE 0.9% 80 ML IV PRN (08:00)
[2023-08-10] MEDS ORDERED: PROTAMINE SULFATE 250 MG in EMPTY BAG 1 BAG IV PRN (08:00)
[2023-08-10] MEDS ORDERED: CLEVIDIPINE BUTYRATE 25 MG in EMPTY BAG 1 BAG IV PRN (08:00)
[2023-08-10] MEDS ORDERED: ELECTROLYTE-A SOLUTION 1,000 ML with POTASSIUM CHLORIDE 100 MEQ, MAGNESIUM SULFATE 16 M... IV PRN (08:00)
[2023-08-10] MEDS ORDERED: SODIUM CHLORIDE 0.9% 500 ML 500 ML INTRAARTER PRN (08:00)
[2023-08-10] MEDS ORDERED: INSULIN REGULAR 100 UNIT in SODIUM CHLORIDE 0.9% 100 ML IV PRN (08:00)
[2023-08-10] MEDS ORDERED: NITROGLYCERIN-D5W PMX 25 MG/250 ML BTL IV PRN (08:00)
[2023-08-10] MEDS: METOPROLOL TARTRATE 25 MG TAB PO ONE (08:17)
[2023-08-10] MEDS: ATORVASTATIN 10 MG TAB PO ONE (08:17)
[2023-08-10] MEDS: ASPIRIN 325 MG TAB PO ONE (08:17)
[2023-08-10] MEDS: CLOPIDOGREL 75 MG TAB PO ONE (08:17)
[2023-08-10 08:29] LABS: Glucose,Whole Blood 138 mg/dL (70-110)
[2023-08-10] MEDS: SODIUM CHLORIDE 0.9% 1,000 ML IV ONE (08:36)
[2023-08-10] MEDS: IOPAMIDOL-370 100ML BTL INJ ONE ×2 (11:44)
--- NOTE | 2023-08-10 12:01 | P.ANPRN ---
Procedure Note - Anesthesia - CRESENCIO Intraop Pre Bypass CRESENCIO Intraop - Anesthesia Indication: aortic stenosis Date of Procedure: 08/10/23 Pre-operative Diagnosis: Aortic Stenosis Post-operative Diagnosis: Aortic Stenosis s/p TAVR Surgeon: Damian Gilmore Left Ventricle: 35-40%. Mild LVH, LVOT 21, Ejection Fraction: Other Regional Wall Motion Abnormalities: None Left Ventricle Hypertrophy: Yes (mild) R. Ventricle Function: Normal Aortic Stenosis: Severe Aortic Regurgitation: None Other Findings: 0.4cm2, mean 43, peak 66 Mitral Stenosis: None Mitral Regurgitation: Moderate Tricuspid Stenosis: None Tricuspid Regurgitation: None Pulmonic Stenosis: None Pulmonic Regurgitation: None R. Atrial Dilation: No R. Atrial PFO: Yes L. Atrial Dilation: No Aortic Dissection: No Aortic Calcification: None Plural Effusion: None
--- NOTE | 2023-08-10 12:03 | P.ANPRN ---
Procedure Note - Anesthesia - CRESENCIO Intraop Post Bypass CRESENCIO Intraop Post Bypass Procedure Performed: TAVR Left Ventricle: unchanged Ejection Fraction: Other (35-40) Regional Wall Motion Abnormalities: None Right Ventricle: unchanged R. Ventricle Function: Normal Aortic Valve: mean 6, prosthetic valve in place. moderate Posterior perivalvular leak, decreasing with time and protamine Mitral Valve: Unchanged Tricuspid: Unchanged Pulmonic: Unchanged Aortic Dissection: No
--- NOTE | 2023-08-10 12:38 | P.OP ---
Date of Procedure: 08/10/23 Preoperative Diagnosis: Symptomatic tricuspid calcific aortic stenosis Postoperative Diagnosis: Same Procedure(s) Performed: The cutaneous transfemoral transcatheter aortic valve implantation with 29 mm Medtronic Evolute FX Corevalve Implants: 29 mm Medtronic Evolute FX Corevalve Anesthesia: GETA Surgeon: Damian Gilmore (Cardiovascular surgeon) Literacy Tutor #1: Hitesh Telles (plate sensitizer) Literacy Tutor #2: Casimiro Gonzalez (Nurse practitioner) Pathology: none sent Condition: stable Disposition: PACU Indications for Procedure: 89-year-old male with symptomatic calcific tricuspid aortic stenosis. Patient is low risk for surgical valve replacement. Patient was seen by both cardiology and cardiac surgery and options were discussed. It was my recommendation that the patient strongly considered surgical aortic valve replacement. Patient opted for transcatheter aortic valve replacement. He was then seen in the high risk valve clinic by the heart team and scheduled for transcatheter aortic valve replacement. Operative Findings: Aortic valve was heavily calcified. There was a significant gradient across the aortic valve with a mean gradient of 45. The valve was implanted with a depth of 6 on the right and 2 on the left. There was moderate valvular leak. 2 balloon dilatations were performed in the leak was reduced to mild. Patient had significant AV block preoperatively and this remained unchanged. Description of Procedure: Patient was brought to the catheterization laboratory, placed supine on the table and anesthetized and intubated. The anterior torso and bilateral groins were sterilely prepped and draped. Right subclavian vein was punctured and a guidewire threaded into the right atrium. Screw-in transvenous pacer wire was placed in the apex of the right ventricle and brought out on the skin and tested. We had good capture at 1 V. Was secured to skin with 2-0 silk suture ligatures. Bilateral femoral arterial access was obtained under ultrasound guidance. A long 6-Ecuadorean sheath was placed on the left into the descending thoracic aorta. 7-Ecuadorean sheath was placed on the right and 2 Perclose devices were then placed. Sheath was then upsized to an 8-[place]cuadorean sheath. A pigtail catheter was placed through the left femoral sheath and positioned in the non- coronary sinus of Valsalva. 8-Ecuadorean sheath on the right was exchanged for a 14-Ecuadorean sheath over a stiff wire. Patient was systemically heparinized and a CTs were maintained greater than 250. Aortic valve was crossed the right pigtail catheter positioned at the apex of the left ventricle. Transvalvular gradients were measured. Stiff wire was placed into the apex of the ventricle and 29 Medtronic Evolute FX Corevalve brought up on the field. A 14-Ecuadorean sh eath was exchanged for the Korbel delivery system and it was advanced across the aortic valve. We had difficulty expanding the Korbel properly due to tight aortic valve. Was decided to recapture the core valve pull it out and replace the 14-Ecuadorean sheath and perform a predilatation. Aortic valve was predilated with a 24 Tyshak balloon we then replaced the Korbel delivery system were able to successfully deployed a core valve 6 on the Right and 2 on the Left. CRESENCIO Demonstrated Moderate Paravalvular Leak and the Core Valve Appeared to Be under Expanded. The Valve Delivery System Was Exchanged for the 14-Ecuadorean Sheath and We Postdilated the Valve with a 23 True Balloon. There was Still Some Residual Paravalvular Leak and We Repeated and Dilatation with a 24 Tyshak Balloon. The valve appeared fully expanded now and there was only mild paravalvular leak. Was felt at this point that further intervention presented later risks and benefits and is decided to accept the implant as well as. Heparin was now reversed with protamine. Femoral hemostasis was obtained by cardiology.
[2023-08-10] MEDS ORDERED: ALPRAZolam 0.5 MG TAB PO PRN (12:57)
[2023-08-10] MEDS ORDERED: Potassium Replacement Protocol 1 EACH MISC MISCELLANE PRN (12:57)
[2023-08-10] MEDS ORDERED: Magnesium Replacement Protocol 1 EACH MISC MISCELLANE PRN (12:57)
[2023-08-10] MEDS ORDERED: CALCIUM GLUCONATE IN NACL 2 GM in SALINE 1 100ML.BAG IVPB PRN (12:57)
[2023-08-10] MEDS ORDERED: HYDROcodone/APAP 10-325MG 1 EACH TAB PO PRN (12:57)
[2023-08-10] MEDS ORDERED: IPRATROPIUM-ALBUTEROL 3 ML NEB INHALATION PRN (12:57)
[2023-08-10] MEDS ORDERED: ONDANSETRON 4 MG/2 ML VIAL IVP PRN (12:57)
[2023-08-10 13:15] LABS: African American GFR (CKD) >90 (>60 ml/min/1.73 sqM); Anion Gap 12 mmol/L; Blood Urea Nitrogen 26 mg/dL (9-20); Calcium 8.7 mg/dL (8.4-10.2); Carbon Dioxide 27 mmol/L (22-30); Chloride 101 mmol/L (98-107); Glucose 154 mg/dL (74-99); Non-African American GFR(CKD) >90 (>60 ml/min/1.73 sqM); Potassium 3.3 mmol/L (3.5-5.1); Sodium 140 mmol/L (137-145)
--- NOTE | 2023-08-10 13:40 | XR ---
EXAM: XR chest 1V portable CLINICAL INDICATION:Male, 73 years old with history of Post Operative Cardiac Surgery; [facility] COMPARISON: None. TECHNIQUE: Chest single view. FINDINGS: Lines/tubes/devices: Status post TAVR. EKG leads and wires overlie the chest. There is a right subcla vian approach lead, likely a temporary transvenous pacer, which terminates left of midline likely wit hin the RV. Cardiomediastinum: Cardiac silhouette appears mildly to moderately enlarged. Mildly tortuous partially calcified aorta. Vasculature: Mild central congestion. Lungs/pleura: No consolidation, sizeable effusion, or visible pneumothorax. However the extreme inferior right cost ophrenic angle and lateral aspect of the left costophrenic angle are excluded from the [id number]. Minimal linear atelectasis versus scarring in the left mid to lower lung zones. Bones/soft tissues: Bony thorax appears grossly intact as seen. Mild degenerative changes of the shoulders and spine. Reg ional soft tissues appear unremarkable. IMPRESSION: 1. Status post TAVR. 2. Cardiomegaly with mild pulmonary vascular congestion. No sizable pleural effusion or pneumothorax identified. 3. Minimal subsegmental atelectasis versus scarring in the left mid to lower lung zones.
[2023-08-10 15:56] LABS: Basophils # (A) 0.1 k/uL (0-0.2); Basophils % (A) 1 %; Eosinophils % (A) 1 %; HCT 43.4 % (39.0-53.0); HGB 15.2 gm/dL (13.0-17.5); Lymphocytes # (A) 0.8 k/uL (1.0-4.8); Lymphocytes % (A) 11 %; MCH 32.9 pg (25.0-35.0); MCV 93.9 fL (80.0-100.0); Mean Platelet Volume 7.4; Monocytes # (A) 0.4 k/uL (0-1.0); Monocytes % (A) 5 %; Neutrophils # (A) 6.2 k/uL (1.3-7.7); Neutrophils % (A) 81 %; Platelet Count 214 k/uL (150-450); RBC 4.62 m/uL (4.30-5.90); RDW 12.9 % (11.5-15.5); WBC 7.6 k/uL (3.8-10.6)
[2023-08-10] MEDS: POTASSIUM BICARBONATE/CIT AC 20 MEQ TABLET.EFF PO ONE (16:54)
[2023-08-10] MEDS: LACTATED RINGERS 1,000 ML IV SCH ×2 (17:03→17:26)
[2023-08-10] MEDS: TAMSULOSIN 0.4 MG CAP.ER.24H PO SCH (20:42)
[2023-08-10] MEDS: allopurinoL 100 MG TAB PO SCH (20:42)
[2023-08-10] MEDS: FINASTERIDE 5 MG TAB PO SCH (20:42)
[2023-08-10] MEDS: ACETAMINOPHEN TAB 325 MG TAB PO PRN (23:47)
[2023-08-10] MEDS: SENNOSIDES-DOCUSATE SODIUM 1 EACH TAB PO SCH (23:50)
[2023-08-10] MEDS: HEPARIN SODIUM,PORCINE 5,000 UNIT/ML 1 ML VIAL SQ SCH (23:51)
[2023-08-11 05:09] LABS: Basophils # (A) 0.1 k/uL (0-0.2); Basophils % (A) 1 %; Eosinophils # (A) 0.1 k/uL (0-0.7); Eosinophils % (A) 1 %; HCT 39.9 % (39.0-53.0); HGB 13.7 gm/dL (13.0-17.5); Lymphocytes # (A) 0.9 k/uL (1.0-4.8); Lymphocytes % (A) 11 %; MCH 32.7 pg (25.0-35.0); MCHC 34.3 g/dL (31.0-37.0); MCV 95.4 fL (80.0-100.0); Mean Platelet Volume 7.4; Monocytes # (A) 0.5 k/uL (0-1.0); Monocytes % (A) 6 %; Neutrophils # (A) 6.9 k/uL (1.3-7.7); Neutrophils % (A) 80 %; Platelet Count 192 k/uL (150-450); RBC 4.19 m/uL (4.30-5.90); RDW 13.1 % (11.5-15.5); WBC 8.6 k/uL (3.8-10.6)
[2023-08-11 06:03] LABS: Ionized Calcium 4.6 mg/dL (4.5-5.3)
[2023-08-11] MEDS: LEVOTHYROXINE 50 MCG TAB PO SCH (06:06)
[2023-08-11] MEDS: PANTOPRAZOLE 40 MG TABLET PO SCH (06:08)
[2023-08-11 06:12] LABS: ALT 26 U/L (4-49); AST 38 U/L (17-59); African American GFR (CKD) >90 (>60 ml/min/1.73 sqM); Albumin 3.6 g/dL (3.5-5.0); Alkaline Phosphatase 59 U/L (38-126); Anion Gap 9 mmol/L; Blood Urea Nitrogen 24 mg/dL (9-20); Calcium 8.6 mg/dL (8.4-10.2); Carbon Dioxide 27 mmol/L (22-30); Chloride 102 mmol/L (98-107); Glucose 128 mg/dL (74-99); Magnesium 1.8 mg/dL (1.6-2.3); Non-African American GFR(CKD) >90 (>60 ml/min/1.73 sqM); Potassium 3.4 mmol/L (3.5-5.1); Sodium 138 mmol/L (137-145); Total Bilirubin 0.5 mg/dL (0.2-1.3); Total Protein 5.9 g/dL (6.3-8.2)
[2023-08-11] MEDS: MAGNESIUM SULFATE-D5W PMX 1 GM in DEXTROSE/WATER 1 100ML.BAG IVPB ONE (07:16)
[2023-08-11] MEDS: POTASSIUM CHLORIDE ER 20 MEQ TAB.ER PO SCH (07:17)
[2023-08-11] MEDS ORDERED: bisacodyL 10 MG SUPP RECTAL PRN (09:00)
[2023-08-11] MEDS ORDERED: MAGNESIUM HYDROXIDE 2,400 MG/30 ML CUP PO PRN (09:00)
[2023-08-11] MEDS ORDERED: hydroCHLOROthiazide 25 MG TAB PO SCH (09:00)
[2023-08-11] MEDS: hydroCHLOROthiazide 25 MG TAB PO SCH (09:09)
[2023-08-11] MEDS: ASPIRIN 81 MG PO SCH (09:09)
[2023-08-11] MEDS: VALSARTAN 160 MG TAB PO SCH (09:10)
[2023-08-11] MEDS: ATORVASTATIN 40 MG TAB PO SCH (09:10)
--- NOTE | 2023-08-11 10:03 | XR ---
EXAMINATION TYPE: XR chest 1V portable DATE OF EXAM: 08/11/2023 7:15 AM CLINICAL INDICATION:Male, 73 years old with history of Post Operative Cardiac Surgery; COMPARISON: Chest radiographs from 08/10/2023. TECHNIQUE: XR chest 1V portable Frontal view of the chest. FINDINGS: Lungs/Pleura: There is no evidence of pleural effusion, focal consolidation, or pneumothorax. Pulmonary vascularity: Unremarkable. Heart/mediastinum: Cardiomediastinal silhouette is unremarkable. Musculoskeletal: No acute osseous pathology. IMPRESSION: No acute cardiopulmonary disease/process.
--- NOTE | 2023-08-11 10:28 | CA ---
Transthoracic Echo Report Name: Aashish Montelongo Age: 73 Gender: M : 1950 Exam Date: 08/11/2023 08:13 Exam Location: [facility] Ht (in): 68 Wt (lb): 208 Ordering Physician: Jenny Mccann Attending/Referring Phys: [id number], Ramy Grain Merchandising Manager Kaylyn Dinh [facility] Procedure CPT: Indications: post TAVR Cardiac Hx: Technical Quality: Technically difficult study Contrast 1: Definity Total Dose (mL): 2 Contrast 2: Total Dose (mL): MEASUREMENTS (Male / Female) Normal Values 2D ECHO LV Diastolic Diameter PLAX 4.7 cm 4.2 - 5.9 / 3.9 - 5.3 cm LV Systolic Diameter PLAX 3.6 cm IVS Diastolic Thickness 1.1 cm 0.6 - 1.0 / 0.6 - 0.9 cm LVPW Diastolic Thickness 1.1 cm 0.6 - 1.0 / 0.6 - 0.9 cm LV Relative Wall Thickness 0.5 LVOT Diameter 2.0 cm DOPPLER AV Peak Velocity 292.9 cm/s AV Peak Gradient 34.3 mmHg AV Mean Velocity 209.8 cm/s AV Mean Gradient 19.9 mmHg AV Velocity Time Integral 47.8 cm LVOT Peak Velocity 163.5 cm/s LVOT Peak Gradient 10.7 mmHg LVOT Velocity Time Integral 33.3 cm LVOT Stroke Volume 102.4 cm??? LVOT Stroke Volume Index 49.3 ml/m??? LVOT Cardiac Index 3751.8 cm???/min???m??? AV Area Cont Eq vti 2.1 cm??? AV Area Cont Eq pk 1.7 cm??? TR Peak Velocity 329.8 cm/s TR Peak Gradient 43.5 mmHg Right Atrial Pressure 8.0 mmHg Pulmonary Artery Systolic Pressu 51.5 mmHg Right Ventricular Systolic Press 51.5 mmHg FINDINGS Left Ventricle Mildly increased left ventricular wall thickness. Left ventricular cavity size normal. Normal left ventricular systolic function with no obvious regional wall motion abnormalities. Left ventricular ejection fraction is estimated at 55- 60%. Right Ventricle Mild right ventricular dilatation. Moderate pulmonary hypertension. Right Atrium Severe right atrial dilatation. Left Atrium Moderate left atrial dilatation. Mitral Valve Mild mitral annular calcification. Mild mitral regurgitation. Aortic Valve Normally functioning bioprosthetic aortic valve without stenosis with a peak velocity of 3.0 m/s, peak gradient of 34.33 mmHg, mean gradient of 19.91 mmHg. Mild prosthetic aortic valve regurgitation. Tricuspid Valve Structurally normal tricuspid valve. Mild tricuspid regurgitation. Pulmonic Valve Pulmonic valve not well visualized. Pericardium No pericardial effusion. Echo free space anterior to the right ventricle likely represents a fat pad. Aorta Aortic root and proximal ascending aorta not well visualized. CONCLUSIONS Mild increased left ventricular wall thickness Left ventricular ejection fraction 55-60% RVSP 51 Normally functioning bioprosthetic aortic valve with Mild paravalvular aortic regurgitation Peak velocity 3.0 m/s Previewed by: Dr. Hitesh Telles DO (Electronically Signed) Final Date: 11 August 2023 10:28
--- NOTE | 2023-08-11 15:13 | P.OP ---
Date of Procedure: 08/10/23 Description of Procedure: Transcatheter Aoritc Valve Replacement Operative report PROCEDURE PERFORMED: 1. Percutaneous Aortic Valve Implantation using a 29 mm Evolut-FX. 2. Transesophageal echocardiography (performed by anesthesia) 3. Ultrasound guided access and repair of [] femoral artery access site by Perclose closure device. 4. Placement of temporary pacemaker wire. 5. Aortic root angiography 6. Pre balloon aortic valvuloplasty with a 24mm Z med and post BAV with a 23mm True and a 24mm Z med balloon INDICATIONS: 1. 73 year-old with a history of severe symptomatic aortic valve stenosis. PERFORMING PHYSICIANS: 1. Hitesh Telles, Interventional Cardiology 2. Damian Gilmore MD, Cardiothoracic Surgeon. 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 Risks, benefits, and alternatives of the procedure had been explained to the patient who understood the risks and agreed to proceed. After consents were obtained, patient was brought to the transcatheter aortic valve implantation room in the cardiac tutorial laboratory supervisor and general anesthesia was provided by the anesthesiologist (see separate report). Once full body sterile prep was performed, right subclavian venous access was obtained and a temporary pacemaker was screwed in, performed by cardiothoracic surgery. Pacing threshholds were checked and deemed appropriate. Next the left femoral artery was accessed using a modified Seldinger technique, ultrasound guidance and micropuncture technique. A 6 [place] Islander Rabi sheath was placed in the left femoral artery. Next, a 6-[place] Islander pigtail catheter was advanced into the aorta and positioned in the aortic root, aortic root angiography was performed to determine optimal deployment angle. The right femoral artery was accessed using modified Seldinger technique, micropuncture technique and under direct ultrasound guidance. Femoral angiogram was done showing access in the common femoral artery and a 6Fr sheath was placed. Next preclose technique was performed using 2 Perclose. Next a 0.035 Safari wire was placed in the Aorta via a pigtail catheter. Over that the arteriotomy was serially dilated and a 14 Fr [place] sheath was placed. Next a 6F- AL1 catheter was advanced over a wire to the aortic root. A straight wire was advanced through the catheter and used to cross the severely stenotic valve. The AL1 was then exchanged for a 6Fr pigtail catheter and pressure measurements were obtained. The 0.035 Safari wire was then positioned in the apex. Next a 29 mm Evolut-FX was advanced. The valve was then positioned across the aortic valve and confirmed with aortic root angiography. The valve was initially partia lly deployed however was hugging the outer curve and became too shallow. 2 more attempts were made however remained too shallow appearing related to calcification and therefore pre BAV was recommended. Pre-balloon aortic valvuloplasty was performed with a 24 mm Z med balloon. Next, the 29 mm Evolut FX was again advanced and positioned across the aortic valve. The valve was then deployed in proper position using slow deployment and with rapid pacing in conjuncture with aortic root angiography and CRESENCIO. The delivery system was withdrawn back into the arch and an aortic root injection in conjunction with CRESENCIO demonstrated mild to moderate aortic regurgitation/perivalvular leak. Therefore repeat balloon valvuloplasty was performed with a 23mm True then a 24mm Z med balloon. Aortic regurgitation had improved to mild and therefore all acceptable. There was no evidence of any other significant abnormalities. The preclose Perclose was then deployed in the right femoral artery and hemostasis was achieved. The pigtail was then advanced to the level of the iliac bifurcation via the left femoral access. Femoral angiogram was performed that showed no contrast leak. The left femoral angiogram demonstrated an arteriotomy in the common femoral artery and this was repaired using a 6F angioseal device with complete hemostasis. The temporary venous pacemaker was sutured in place. The patient was then transported to the ICU in hemodynamically stable condition, requiring no pressor support. COMPLICATIONS: None CONCLUSION: 1. Implantaion of 29 mm Evolut-FX transcatheter aortic valve via right femoral approach under CRESENCIO and fluoro guidance with mild paravalvular aortic regurgitation. 2. Placement of temporary pacemaker wire 3. Aortic Root Aortogram. RECOMMENDATIONS: The patient will be monitored for hemodynamic and electrical stability. Patient will be on aspirin
[2023-08-11] MEDS: HEPARIN SOD,PORK IN 0.45% NACL 25,000 UNIT in 0.45% NACL 1 250ML.BAG IV SCH (16:20)
[2023-08-11] MEDS: HEPARIN SODIUM 1,000 UN/ML (10ML VL) IV ONE (16:21)
[2023-08-11 16:30] LABS: Partial Thromboplastin Time 23.5 sec (22.0-30.0); Prothrombin Time 11.3 sec (10.0-12.5)
--- NOTE | 2023-08-11 17:05 | P.PN ---
Subjective Progress Note Date: 08/11/23 Principal diagnosis: Severe symptomatic aortic valve stenosis, NYHA class II, controlled paroxysmal atrial flutter, urinary retention. Previous medical history of bradycardia with Mobitz type I heart block as well as PVCs and incomplete right bundle branch block, hypothyroid, BPH, previous tobacco dependence POD #1 percutaneous aortic valve implantation using a 29 mm Evolut FX, transesophageal echocardiography performed by anesthesia, ultrasound-guided access and repair of right femoral artery access site by Perclose closure device, placement of temporary pacemaker wire, aortic root angiography, pre- balloon aortic valvuloplasty with a 24 mm Z-Med and post BAV with a 23 mm true and a 24 mm Z-Med balloon The patient was seen and examined this morning and multiple times throughout the day sitting up in bed in the cardiac stepdown unit in no acute distress. Patient's rhythm was back in a Mobitz type II with occasional PACs and PVCs, patient remains on no AV talisha blocking agents. In addition he did have urinary retention requiring straight catheterization which he does have a history of. Patient has denied any pain or shortness of breath all day, states he does feel better. Temporary pacemaker wires were removed without incident. Transthoracic echocardiogram was completed demonstrating normal left ventricular systolic function with EF 55-60%, normally functioning bioprosthetic aortic valve without stenosis, peak velocity 3 m/s, peak/mean gradient 34/19 mmHg, mild prosthetic aortic valve regurgitation, mild mitral and tricuspid regurgitation with right and left atrial dilatation. Unfortunately as we were considering discharge with loop recorder in place patient experienced intermittent course of controlled atrial flutter which he has never had before. We did start patient on IV heparin and will monitor throughout the night. This was discussed in detail with the patient, his , and his son via phone, all questions were answered. Objective - Vital Signs Vital signs: Vital Signs Temp 98.4 F 08/11/23 16:00 Pulse 64 08/11/23 16:00 Resp 18 08/11/23 16:00 BP 127/65 08/11/23 16:00 Pulse Ox 97 08/11/23 16:00 FiO2 Intake & Output 08/10/23 08/11/23 08/11/23 18:59 06:59 18:59 Intake Total 1000 540 180 Output Total 780 Balance 1000 540 -600 Weight 94.7 kg 96 kg Intake: IV 800 Intake, IV Titration 200 Amount Lactated Ringers 1,000 ml 150 @ 50 mls/hr IV .Q20H [facility] Rx#:[id number] ceFAZolin 2 gm In Sodium 50 Chloride 0.9% 50 ml @ 100 mls/hr IVPB Q8HR [facility] Rx# :[id number] Oral 540 180 Output: Urine 780 Straight 780 Other: Voiding Method Toilet # Voids 2 1 - Exam CONSTITUTIONAL: Appears comfortable, cooperative, no acute distress RESPIRATORY: Lungs sounds diminished bilaterally. Respirations even, nonlabored. Currently on room air with oxygen saturation 97% CARDIOVASCULAR: S1, S2 present, systolic murmur present. Irregular rate and rhythm, Mobitz type I with intermittent-controlled atrial flutter on telemetry. Palpable peripheral pulses bilaterally. No edema present GASTROINTESTINAL: Abdomen soft, nontender, nondistended. Active bowel sounds present 4 quadrants. Tolerating diet GENITOURINARY: Patient has voided, needed straight cath 1 INTEGUMENTARY: Skin is warm and dry with NEUROLOGIC: Cranial nerves II through XII intact MUSKULOSKELETAL: Able to move all extremities, strength equal bilaterally, gait normal PSYCHIATRIC: Alert and oriented to person place and time, appropriate affect, intact judgment and insight - Allied health notes Allied health notes reviewed: nursing - Labs CBC & Chem 7: 08/11/23 04:50 08/11/23 04:50 Labs: Abnormal Lab Results - Last 24 Hours (Table) 08/11/23 08/11/23 Range/Units 04:50 04:50 RBC 4.19 L (4.30-5.90) m/uL Lymphocytes # 0.9 L (1.0-4.8) k/uL Potassium 3.4 L (3.5-5.1) mmol/L BUN 24 H (9-20) mg/dL Glucose 128 H (74-99) mg/dL Total Protein 5.9 L (6.3-8.2) g/dL - Imaging and Cardiology Chest x-ray: report reviewed, image reviewed Assessment and Plan Assessment: Severe symptomatic aortic valve stenosis, NYHA class II, status post transcath eter aortic valve replacement Controlled paroxysmal atrial flutter, new Urinary retention History of bradycardia with Mobitz type I heart block as well as PVCs and incomplete right bundle branch block Hypothyroid BPH Previous tobacco dependence Plan: Continue current medication regimen, avoid AV talisha blocking agents at this time due to Mobitz type I Initiate IV heparin, will transition to oral anticoagulation tomorrow Increase activity, ambulate as tolerated Continue Flomax, Proscar May bladder scan and straight cath for greater than 300 mL residual GI/DVT prophylaxis Recheck labs, chest x-ray in the morning Patient/family updated More recommendations to follow
[2023-08-11] MEDS: HEPARIN SODIUM 1,000 UN/ML (10ML VL) IV PRN (23:00)
[2023-08-12 07:10] LABS: HCT 38.5 % (39.0-53.0); HGB 13.3 gm/dL (13.0-17.5); MCH 32.9 pg (25.0-35.0); MCHC 34.5 g/dL (31.0-37.0); MCV 95.5 fL (80.0-100.0); Mean Platelet Volume 7.5; Platelet Count 164 k/uL (150-450); RBC 4.03 m/uL (4.30-5.90); WBC 8.1 k/uL (3.8-10.6)
[2023-08-12 07:27] LABS: African American GFR (CKD) >90 (>60 ml/min/1.73 sqM); Anion Gap 10 mmol/L; Blood Urea Nitrogen 18 mg/dL (9-20); Calcium 8.6 mg/dL (8.4-10.2); Carbon Dioxide 28 mmol/L (22-30); Chloride 99 mmol/L (98-107); Glucose 126 mg/dL (74-99); Non-African American GFR(CKD) >90 (>60 ml/min/1.73 sqM); Potassium 2.9 mmol/L (3.5-5.1); Sodium 137 mmol/L (137-145)
[2023-08-12 07:34] LABS: INR 1.1 (<1.2); Prothrombin Time 11.8 sec (10.0-12.5)
--- NOTE | 2023-08-12 08:57 | XR ---
EXAMINATION TYPE: XR chest 1V portable DATE OF EXAM: 08/12/2023 Comparison: 08/11/2023 Clinical History: 73-year-old male Post Operative Cardiac Surgery Findings: Heart mildly enlarged. Mild interstitial densities similar to slightly increased. No consolidation or pleural effusion. Endovascular repair and valve replacement. Pacer lead removed. Impression: Mild cardiomegaly. Endovascular aortic valve replacement. There may early developing mild pulmonary v ascular congestion.
[2023-08-12] MEDS: POTASSIUM BICARBONATE/CIT AC 20 MEQ TABLET.EFF PO ONE ×2 (09:29→10:49)
[2023-08-12] MEDS: POTASSIUM CHLORIDE 10 MEQ in WATER FOR INJECTION 1 100ML.BAG IVPB STA (11:56)
--- NOTE | 2023-08-12 14:57 | P.PN ---
Subjective Progress Note Date: 08/12/23 Principal diagnosis: Severe symptomatic aortic valve stenosis, NYHA class II, controlled paroxysmal atrial flutter, complete heart block, urinary retention. Previous medical histo ry of bradycardia with Mobitz type I heart block as well as PVCs and incomplete right bundle branch block, hypothyroid, BPH, previous tobacco dependence POD #2 percutaneous aortic valve implantation using a 29 mm Evolut FX, transesophageal echocardiography performed by anesthesia, ultrasound-guided access and repair of right femoral artery access site by Perclose closure device, placement of temporary pacemaker wire, aortic root angiography, pre- balloon aortic valvuloplasty with a 24 mm Z-Med and post BAV with a 23 mm true and a 24 mm Z-Med balloon The patient was seen and examined this morning with Dr. Gonsalves and again this afternoon with Dr. Telles. Family at the bedside, patient is sitting in a recliner in no acute distress. Patient's rhythm appears to be be complete heart block athough heart rate in the 60s and 70s, blood pressure stable. Urinary retention seems to have resolved. Patient has denied any pain, shortness of breath, dizziness. We did discuss placing permanent pacemaker due to unlikelihood that third-degree heart block will resolve, especially given patient's long-standing history of second-degree heart block. We reviewed extensively the risks and benefits, all questions were answered for the patient and his family, and they did consent to permanent pacemaker placement which will be completed tomorrow by Dr. Telles. Objective - Vital Signs Vital signs: Vital Signs Temp 97.8 F 08/12/23 11:14 Pulse 68 08/12/23 14:00 Resp 17 08/12/23 14:00 BP 121/59 08/12/23 11:14 Pulse Ox 98 08/12/23 11:14 FiO2 Intake & Output 08/11/23 08/12/23 08/12/23 18:59 06:59 18:59 Intake Total 180 606.667 392.653 Output Total 780 1180 Balance -600 -573.333 392.653 Weight 95.8 kg Intake: Intake, IV Titration 66.667 152.653 Amount Heparin Sod,Pork in 0.45% 66.667 152.653 NaCl 25,000 unit In 0.45 % NaCl 1 250ml.bag @ 10. 417 UNITS/KG/HR 10 mls/hr IV .Q24H [facility] Rx#: [id number] Oral 180 540 240 Output: Urine 780 1180 Straight 780 Other: Voiding Method Toilet Toilet Urinal Urinal # Voids 1 2 - Exam CONSTITUTIONAL: Appears comfortable, cooperative, no acute distress RESPIRATORY: Lungs sounds diminished bilaterally. Respirations even, nonlabored. Currently on room air with oxygen saturation 98% CARDIOVASCULAR: S1, S2 present, systolic murmur present. Regular rate and rhythm, complete heart block on telemetry. Palpable peripheral pulses bilaterally. No edema present GASTROINTESTINAL: Abdomen soft, nontender, nondistended. Active bowel sounds present 4 quadrants. Tolerating diet GENITOURINARY: Patient has continued to void INTEGUMENTARY: Skin is warm and dry with, bilateral groins soft, nontender NEUROLOGIC: Cranial nerves II through XII intact MUSKULOSKELETAL: Able to move all extremities, strength equal bilaterally, gait normal PSYCHIATRIC: Alert and oriented to person place and time, appropriate affect, intact judgment and insight - Allied health notes Allied health notes reviewed: nursing - Labs CBC & Chem 7: 08/12/23 06:33 08/12/23 06:33 Labs: Abnormal Lab Results - Last 24 Hours (Table) 08/11/23 08/12/23 08/12/23 Range/Units 22:00 06:33 06:33 RBC 4.03 L (4.30-5.90) m/uL Hct 38.5 L (39.0-53.0) % APTT 31.8 H (22.0-30.0) sec Potassium 2.9 L (3.5-5.1) mmol/L Glucose 126 H (74-99) mg/dL 08/12/23 Range/Units 06:33 RBC (4.30-5.90) m/uL Hct (39.0-53.0) % APTT 46.1 H (22.0-30.0) sec Potassium (3.5-5.1) mmol/L Glucose (74-99) mg/dL - Imaging and Cardiology Chest x-ray: report reviewed, image reviewed Assessment and Plan Assessment: Severe symptomatic aortic valve stenosis, NYHA class II, status post transcatheter aortic valve replacement Controlled paroxysmal atrial flutter, new Complete heart block Urinary retention History of bradycardia with Mobitz type I heart block as well as PVCs and incomplete right bundle branch block Hypothyroid BPH Previous tobacco dependence Plan: Continue current medication regimen, avoid AV talisha blocking agents Plan is for permanent pacemaker placement tomorrow, 08/13/[address] Telles Hold heparin, will transition to oral anticoagulation tomorrow after pacemaker placed Increase activity, ambulate as tolerated Continue Flomax, Proscar GI/DVT prophylaxis Recheck labs, chest x-ray in the morning Patient/family updated More recommendations to follow
[2023-08-13 08:03] LABS: HCT 38.5 % (39.0-53.0); HGB 13.1 gm/dL (13.0-17.5); MCH 32.7 pg (25.0-35.0); MCHC 33.9 g/dL (31.0-37.0); MCV 96.2 fL (80.0-100.0); Mean Platelet Volume 7.6; Platelet Count 195 k/uL (150-450); RBC 4.01 m/uL (4.30-5.90); RDW 12.8 % (11.5-15.5); WBC 7.8 k/uL (3.8-10.6)
[2023-08-13 08:20] LABS: African American GFR (CKD) >90 (>60 ml/min/1.73 sqM); Anion Gap 8 mmol/L; Blood Urea Nitrogen 16 mg/dL (9-20); Calcium 8.7 mg/dL (8.4-10.2); Carbon Dioxide 30 mmol/L (22-30); Chloride 98 mmol/L (98-107); Glucose 122 mg/dL (74-99); Magnesium 1.8 mg/dL (1.6-2.3); Non-African American GFR(CKD) >90 (>60 ml/min/1.73 sqM); Potassium 3.5 mmol/L (3.5-5.1); Sodium 136 mmol/L (137-145)
[2023-08-13] MEDS ORDERED: fentaNYL (PF) 50 MCG/ML 2 ML AMP ONE (09:55)
[2023-08-13] MEDS: SODIUM CHLORIDE 0.9% 1,000 ML IV ONE (10:04)
[2023-08-13] MEDS: IOPAMIDOL-370 100ML BTL INJ ONE (10:04)
[2023-08-13] MEDS: MIDAZOLAM 2 MG/2 ML VIAL IVP ONE ×2 (10:14→10:23)
[2023-08-13] MEDS: fentaNYL (PF) 50 MCG/1 ML VIAL IVP ONE ×2 (10:15)
[2023-08-13] MEDS: ceFAZolin 1,000 MG in SODIUM CHLORIDE 0.9% IRRIG BTL 250 ML IRRIGATION PRN (10:15)
[2023-08-13] MEDS: LIDOCAINE 1% INJ 10MG/ML (30 ML VIAL-PF) SQ ONE (10:18)
[2023-08-13] MEDS ORDERED: ACETAMINOPHEN TAB 325 MG TAB PO PRN (11:53)
--- NOTE | 2023-08-13 11:53 | P.PCN ---
Description of Procedure: CARDIOLOGY PROCEDURE NOTE Lawn Care Worker: Dr. Hitesh Telles HPI: [] Procedure performed: Insertion dual chamber permanent pacemaker Site: Left subclavian Indications: Sick Sinus Syndrome Complications: None Blood Loss: Minimal Description of Procedure: After the risks, benefits, and alternatives of the above-mentioned procedure was explained in detail with the patient, informed consent was obtained. The patient was taken to the cardiac catheterization suite where the left subclavian area was sterily prepped and draped in the usual fashion. One percent lidocaine was used to anesthetize the left subclavian area. Twenty milliliters of Isoview 370 contrast was injected into the left antecubital vein to allow for direct visualization of the left subclavian vein under fluoroscopy. A 1.5 inch incision was made utilizing a #15 blade in the left subclavian site. Hemostasis was made complete. Electrocautery along with digital blunt dissection was utilized to dissect to the level of the pectoralis muscle fascia and create a pocket large enough to accommodate the generator. A thin walled micro puncuture needle was used to cannulate the left subclavian vein. A guide-wire was inserted through the needle into the vascular lumen under fluoroscopic guidance. The needle was removed. Another thin walled micr puncture needle was used to again cannulate the left subclavian vein. A guide-wire was inserted through the needle into the vascular lumen under fluoroscopic guidance. The needle was removed and both guide-wires were attached to the field. A venous sheath and dilator were advanced over the guidewire into the vascular lumen under fluoroscopic guidance. The dilator and guidewire were then removed. A right ventricular bipolar lead was inserted into the sheath and advanced under fluoroscopic guidance into the right ventricle under fluoroscopic guidance. Adequate sensing and pacing thresholds were achieved and the lead was screwed into place in the RV apex. The sheath was then torn away. The lead collar was advanced and anchored into place utilizing #0 silk suture. Next, another venous sheath and dilator were advanced under fluoroscopic guidance into the vascular lumen over the guidewire. After removal of the dilator and guidewire, a right atrial bipolar lead was inserted into this sheath and advanced under fluoroscopic guidance into the right atrium. The lead was positioned into the right atrial appendage. Adequate sensing and pacing thresholds were then achieved with patient being in Aflutter at the time and the lead was screwed into place. The sheath was then torn away. The lead collar was advanced and anchored into place utilizing #0 silk suture. The leads were then inserted into the appropriate position into the generator. They were then secured with the setscrew provided. The leads and generator were inserted into the pocket with the leads posterior. The subcutaneous tissue was approximated utilizing #2.0 and 3.0 vicryl in an interrupted stitch fashion. The dermal layer was approximated utilizing #4.0 vicryl. The area was cleansed with sterile saline and dried. A sterile 4x4 d ressing was applied and the patient was transferred to the post catheterization holding area in stable and satisfactory condition. The patient tolerated the procedure well. Generator Data Foot Setter: [employer] Brand: [id number] Toad Hop XT DR MRI Model #: W1DR01 Serial#: [id number] Right Atrial Bipolar Lead Data: Type: Active fixation lead Foot Setter: [employer] Model#: 5076-45 Serial Number: [id number] Right Ventricular Bipolar Lead Data: Type: Active fixation lead Foot Setter: Medtronic Model #: 5076-52 Serial #: [id number] Stimulation Thresholds: Right atrial bipolar lead pacing and sensing thresholds Voltage: 0.5V Impedance: 570 ohms P-wave sensin.5 mV Right Ventricular bipolar lead pacing and sensing thresholds Pulse Width: 0.4ms Voltage: 0.75 volts Impedance: 570 ohms R-wave sensin.8 mV Parameter Setting: Pacing mode is DDD Lower rate 60 bpm Upper rate 130 bpm Impressions: 1. Successful implantation of a dual chamber permanent pacemaker in the left pectoral site. Plan: 1. Routine post procedure care will be instituted as well as outpatient follow- up surveillance.
--- NOTE | 2023-08-13 12:32 | XR ---
EXAM: XR chest 1V portable CLINICAL INDICATION:Male, 73 years old with history of Lead placement check; [facility] COMPARISON: Yesterday and 2 days ago TECHNIQUE: Chest single view. FINDINGS: Lines/tubes/devices: No indwelling lines. There has been placement of a left chest 2-lead permanent p acemaker. The lead tips project over the right atrium and right ventricle. Cardiomediastinum: Cardiac silhouette appears stable, mildly to moderately enlarged. Status post TAVR. Stable mediastinal silhouette. Vasculature: No increased pulmonary vasculature. Lungs/pleura: No consolidation, sizeable effusion, or visible pneumothorax. Bones/soft tissues: Bony thorax appears grossly intact as seen. Regional soft tissues appear unremarkable. IMPRESSION: 1. Cardiomegaly with dual lead permanent pacemaker in place. 2. No acute cardiopulmonary abnormality.
--- NOTE | 2023-08-14 09:20 | P.DS ---
Providers Date of admission: 08/10/23 07:53 Expected date of discharge: 08/14/23 Attending physician: Hitesh Telles DO Consults: 08/10/23 08:00 Consult to Anesthesia Routine Consulting Provider: Anesthesia,Services Consult Reason/Comments: Cardiac Surgery Pre-Op 08/10/23 11:44 Consult Physician Routine Consulting Provider: Damian Gilmore Consult Reason/Comments: post TAVR Do you want consulting provider notified?: Already Contacted Primary care physician: Randy Prado Hospital Course: MEDICAL HISTORY: 1. Calcified aortic valve with severe symptomatic aortic valve stenosis, NYHA class II 2. Controlled paroxysmal atrial flutter, new 3. Complete heart block with history of bradycardia/Mobitz type I with PVCs and incomplete right bundle branch block 4. Urinary retention with history of BPH 5. Hypothyroid 6. Previous tobacco dependence PROCEDURE: 1. Percutaneous aortic valve implantation using a 29 mm EvolutFX under CRESENCIO and fluoroscopy guidance 2. Transesophageal echocardiography performed by anesthesia 3. Ultrasound-guided access and repair of right femoral artery access site by Perclose closure device 4. Placement of temporary pacemaker wire 5. Aortic root angiography 6. Pre-balloon aortic valvuloplasty with a 24 mm cemented and post BAV with 23 mm True and 24 mm Z med balloon 7. Insertion of dual-chamber Medtronic permanent pacemaker HISTORY OF PRESENT ILLNESS: This is a 73-year-old gentleman who follows on an outpatient basis with Dr. Prado for primary care and Dr. Telles for cardiology. He has a known history of severe aortic stenosis and has been symptomatic with increased exertional dyspnea as well as fatigue. He had been referred to structural heart clinic for evaluation for transcatheter aortic v alve replacement after heart catheterization and transesophageal echocardiogram were completed. Echocardiography demonstrated normal systolic function with EF 55-60%, aortic valve area 0.8 cm with a peak/mean gradient 76/54 mmHg. Heart catheterization showed no significant coronary artery disease. After workup was completed STS risk score was calculated along with incremental risk and the carole ent was felt to be low risk for surgical aortic valve replacement, however the patient did not wish to have surgical aortic valve replacement therefore transcatheter aortic valve replacement was recommended. The usual course of TAVR was discussed in detail the patient, risks and benefits were reviewed, shared decision making between cardiology, surgery, and the patient/family took place taking into account the patient's values and preferences, and the patient consented to proceed with the procedure. HOSPITAL COURSE: The patient was brought to the hospital on 08/10/23, was taken to the extended stay area, prepared in the usual fashion, and subsequently taken to the cardiac catheterization laboratory where Dr. Telles and Dr. Gilmore completed TAVR procedure under general anesthesia with fluoroscopy and CRESENCIO. The valve was deployed under rapid ventricular pacing and proceeded without event. At the end of the procedure there was mean gradient 6 mmHg, hemodynamics were felt to be acceptable, and there was moderate perivalvular leak improved to mild. Upon completion of the procedure the patient was extubated and was transferred to the recovery room and eventually the cardiac stepdown unit where he was recovered and monitored hemodynamically. His oxygen was titrated down, he was tolerating oral diet, his pain was controlled, follow-up TTE demonstrated dermal left ventricular systolic function, mild aortic regurgitation with mean gradient 19. Unfortunately the patient developed short burst of controlled atrial flutter then overnight experienced complete heart block although he remained asymptomatic. Decision was made for placement of dual-chamber permanent pacemaker, follow-up device interrogation was acceptable and the patient was ready to be discharged to home on postoperative day #4. He received written and verbal instruction regarding his medications, activity restrictions, signs and symptoms requiring physician notification, and follow-up appointments. He was to start on Eliquis for anticoagulation 24 hours after discharge. Patient Condition at Discharge: Stable Plan - Discharge Summary Discharge Rx Participant: Yes New Discharge Prescriptions: New Sennosides-Docusate Sodium [Senokot-S] 2 each PO HS tab Acetaminophen Tab [Tylenol] 650 mg PO Q4HR PRN tab PRN Reason: Fever And/ Or Mild Pain (1-3) Apixaban [Eliquis] 5 mg PO BID #60 tab Continue HYDROcodone/APAP 10-325MG [[place] 10-325] 1 tab PO BID PRN PRN Reason: Pain hydroCHLOROthiazide 25 mg PO DAILY ALPRAZolam [Xanax] 0.5 mg PO HS PRN PRN Reason: sleep Tamsulosin [Flomax] 0.4 mg PO HS Valsartan/Hydrochlorothiazide [Valsartan-Hctz 320-25 mg Tab] 1 each PO DAILY Levothyroxine Sodium [Synthroid] 50 mcg PO DAILY Dutasteride [Avodart] 0.5 mg PO HS allopurinoL 100 mg PO HS Rosuvastatin [Crestor] 20 mg PO DAILY Discharge Medication List ALPRAZolam [Xanax] 0.5 mg PO HS PRN 07/03/21 [History] Dutasteride [Avodart] 0.5 mg PO HS 07/03/21 [History] HYDROcodone/APAP 10-325MG [[place] 10-325] 1 tab PO BID PRN 07/03/21 [History] Levothyroxine Sodium [Synthroid] 50 mcg PO DAILY 07/03/21 [History] Tamsulosin [Flomax] 0.4 mg PO HS 07/03/21 [History] Valsartan/Hydrochlorothiazide [Valsartan-Hctz 320-25 mg Tab] 1 each PO DAILY 07/03/21 [History] hydroCHLOROthiazide 25 mg PO DAILY 07/03/21 [History] Rosuvastatin [Crestor] 20 mg PO DAILY 04/08/23 [History] allopurinoL 100 mg PO HS 04/08/23 [History] Acetaminophen Tab [Tylenol] 650 mg PO Q4HR PRN tab 08/11/23 [Rx] Sennosides-Docusate Sodium [Senokot-S] 2 each PO HS tab 08/11/23 [Rx] Apixaban [Eliquis] 5 mg PO BID #60 tab 08/14/23 [Rx] Follow up Appointment(s)/Referral(s): Randy Prado MD [Primary Care Provider] - As Needed Hitesh Telles DO [STAFF PHYSICIAN] - 08/18/23 3:00 pm (Your appointment 08/18 is for groin check. You also have a 30 day post TAVR appointment with Dr. Telles and echocardiogram 10/04/23 @7:30 am, as well as a 1 year post TAVR appointment with Dr. Telles and echocardiogram 07/16/24 @ 8:15 am.) Clinic,Structural Heart [NON-STAFF] - 10/04/23 9:00 am (Your 30 day post TAVR appointment at the valve clinic is 10/04/23 @ 9 am, and your 1 year post TAVR appointment at the valve clinic is 07/16/24 @ 10 am) Ambulatory/Diagnostic Orders: Basic Metabolic Panel [LAB.AMB] Location: None Selected Basic Metabolic Panel [LAB.AMB] Location: None Selected Complete Blood Count w/diff [LAB.AMB] Location: None Selected Complete Blood Count w/diff [LAB.AMB] Location: None Selected Activity/Diet/Wound Care/Special Instructions: DISCHARGE INSTRUCTIONS: 1. No driving for 1 week, or until physician gives their ok. 2. No lifting, pushing, or pulling more than 5-10 pounds for 1 week. 3. Hold both groins when you cough or sneeze for the next 2 weeks. Bruising is common, but report increased swelling, pain or fever >101F 4. Shower daily. No pool, hot tub, or bathtub for 1 week 5. No powders, lotions, ointments on incisions. 6. No straining, including for bowel movements. Use stool softner if necessary 7. Stairs are not an issue. Go slowly, using handrail and take 1 step at a time. Ambulate several times daily 8. Continue pain control per as needed orders. 9. Take only the medications listed on your discharge form 10. Eat low salt (limited to 2 grams or 2000 milligrams) daily, avoid adding salt, avoid canned/processed foods 11. Take your weight daily in the morning and record, bring with you to your follow up appointments 12. Keep all follow up appointments. You will need a valve clinic appointment at 30 days and 1 year post procedure for follow up 13. You have been referred to and are expected to begin Cardiac Rehab in approximately 4 weeks. 14. You will need antibiotics prior to any dental work, including cleanings, and any surgeries to prevent Endocarditis (bacterial infection in your heart) For any questions or concerns please call your valve coordinators: Jenny or Armando @ PATIENT EDUCATION MATERIAL Instructions following a heart rhythm device implant. 1. Keep dressing DRY for 5 DAYS. You may cover the area with Saran or Cling Wrap, prior to a shower. 2. The dressing will be removed in the Device Clinic at [facility]. Absorbable sutures were used to close the wound. 3. Avoid raising the left arm above the shoulder level. 4 week restriction 4. Avoid arm movements, like backscratching, rubbing the head, or pulling on a cord. 4 weeks restriction 5. Gentle range of motion movements of the shoulder, closest to the incision should be performed to avoid a frozen shoulder. (Pendulum exercises of the shoulder) 6. The opposite arm may be used freely. 7. Avoid driving for 7 days. 8. Avoid activities such as golfing, swimming, weed whacking, lifting more than 10 pounds weight, bowling, gymnastics and weight training/lifting. (6 weeks restriction) 9. Activities such as wood chopping with an axe, pull-ups in the gymnasium, power lifting, arc-welding, being close to home induction cooktops will always be a problem. 10. Arm sling is only a reminder not to raise the arm above the head. You do not need to keep the arm completely immobilized. Your free to move the arm and use it and for normal activities. In case of any problems, please call [facility], [place], @ [phone], Attention: Device Clinic Discharge Disposition: HOME SELF-CARE
[2023-08-14 09:27] VITALS: BP 114/63; PULSE 77; RESP 17; TEMP 98.2
--- NOTE | 2023-08-22 11:57 | CDI ---
Documentation Clarification Form Date: 08/22/2023 11:00:49 AM From: Shu Moulton RN, CCDS Phone: [phone] Admit Date: 08/10/2023 07:53:00 AM Patient Name: Aashish Montelongo Visit Number: [id number] Discharge Date: 08/14/2023 10:14:00 AM ATTENTION: The Clinical Documentation Specialists (CDI) and [facility] Coding Staff appreciate your assistance in clarifying documentation. Please respond to the clarification below the line at the bottom and electronically sign. The CDI & [facility] Coding staff will review the response and follow-up if needed. Please note: Queries are made part of the Legal Health Record. If you have any questions, please contact the author of this message via ITS. Dr. Hitesh Telles Controlled paroxysmal atrial flutter, new is documented in the progress note starting on 08/11/23 and patient had percutaneous aortic valve replacement on 08/10/23. Additional clarification is requested regarding the relationship, if any, that exists between the diagnosis and the procedure. Patients Admitting Diagnosis: Severe symptomatic aortic valve stenosis, NYHA class II, Post-Operative Diagnosis: Procedure performed: Percutaneous Aortic Valve Implantation using a 29 mm Evolut-FX. Percutaneous Aortic Valve Implantation using a 29 mm Evolut-FX. Pre balloon aortic valvuloplasty, Aortic root angiography, Aortic root angiography History/Risk Factors: Hypothyroid, BPH, urinary retention. bradycardia with Mobitz type I heart block as well as PVCs and incomplete right bundle branch block Clinical Indicators: 73-year-old male with a history of severe symptomatic aortic valve stenosis. 08/11 progress note: Patient's rhythm was back in a Mobitz type II with occasional PACs and PVCs, patient. Unfortunately, as we were considering discharge with loop recorder in place patient experienced intermittent course of controlled atrial flutter which he has never had before. VS127/65 54 16 98.4 97% RA 08/11 ECHO: Mild increased left ventricular wall thickness. Left ventricular ejection fraction 55-60% Normal functioning bioprosthetic aortic valve with mild paravalvular aortic regurgitation peak velocity 3.0 m/s Treatment: Cardiac/Telemetry Monitoring IV Heparin Per orders 08/11 Eliquis 5 MG BID start 08/15 23 What relationship, if any, exists between the diagnosis of controlled paroxysmal atrial flutter, new and the procedure: [ ] Controlled paroxysmal atrial flutter, new, is a complication of surgical procedure [ ] Controlled paroxysmal atrial flutter, new, is an expected outcome of the surgical procedure [ ] Controlled paroxysmal atrial flutter, new, is related to patients co- morbid condition(s) of [insert co-morbid dxs] & not a complication of the procedure [ ] Other please specify ____ [ ] Unable to determine (Template Last Revised: October 2020) MTDD
--- NOTE | 2023-08-29 07:37 | CDI ---
Documentation Clarification Form Date: 08/22/2023 11:00:00 AM From: Shu Moulton RN, CCDS Phone: [phone] Admit Date: 08/10/2023 07:53:00 AM Patient Name: Aashish Montelongo Visit Number: [id number] Discharge Date: 08/14/2023 10:14:00 AM ATTENTION: The Clinical Documentation Specialists (CDI) and [facility] Coding Staff appreciate your assistance in clarifying documentation. Please respond to the clarification below the line at the bottom and electronically sign. The CDI & [facility] Coding staff will review the response and follow-up if needed. Please note: Queries are made part of the Legal Health Record. If you have any questions, please contact the author of this message via ITS. Dr. Hitesh Telles Controlled paroxysmal atrial flutter, new is documented in the progress note starting on 08/11/23 and patient had percutaneous aortic valve replacement on 08/10/23. Additional clarification is requested regarding the relationship, if any, that exists between the diagnosis and the procedure. Patients Admitting Diagnosis: Severe symptomatic aortic valve stenosis, NYHA class II, Post-Operative Diagnosis: Procedure performed: Percutaneous Aortic Valve Implantation using a 29 mm Evolut-FX. Percutaneous Aortic Valve Implantation using a 29 mm Evolut-FX. 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 08/11 progress note: Patient's rhythm was back in a Mobitz type II with occasional PACs and PVCs, patient. Unfortunately, as we were considering discharge with loop recorder in place patient experienced intermittent course of controlled atrial flutter which he has never had before. VS127/65 54 16 98.4 97% RA 08/11 ECHO: Mild increased left ventricular wall thickness. Left ventricular ejection fraction 55-60% Normal functioning bioprosthetic aortic valve with mild paravalvular aortic regurgitation peak velocity 3.0 m/s Treatment: Cardiac/Telemetry Monitoring IV Heparin Per orders 08/11 Eliquis 5 MG BID start 08/15 23 What relationship, if any, exists between the diagnosis of controlled paroxysmal atrial flutter, new and the procedure: [ ] Controlled paroxysmal atrial flutter, new, is a complication of surgical procedure [ ] Controlled paroxysmal atrial flutter, new, is an expected outcome of the surgical procedure [ X ] Controlled paroxysmal atrial flutter, new, is related to patients co- morbid condition(s) ofHTN, CHF, valvular heart disease & not a complication of the procedure [ ] Other please specify ____ [ ] Unable to determine (Template Last Revised: October 2020) MTDD
== END 2023-08-14 10:14 | disposition home or self-care (01) | DRG 267 ==
LOC: 2ORMAIN 07:53 → 3SCARD 15:25
PROVIDERS: ADMIT Internal Medicine; ATTEND Internal Medicine
PROC: 027F3ZZ Dilation of Aortic Valve, Percutaneous Approach (ICD-10-PCS; principal; 2023-08-10 10:15)
PROC: B24BZZ4 Ultrasonography of Heart with Aorta, Transesophageal (ICD-10-PCS; principal; 2023-08-10 10:15)
PROC: 04QK3ZZ Repair Right Femoral Artery, Percutaneous Approach (ICD-10-PCS; principal; 2023-08-10 10:15)
PROC: B3101ZZ Fluoroscopy of Thoracic Aorta using Low Osmolar Contrast (ICD-10-PCS; principal; 2023-08-10 10:15)
PROC: 02RF38Z Replacement of Aortic Valve with Zooplastic Tissue, Percutaneous Approach (ICD-10-PCS; principal; 2023-08-10 10:15)
PROC: 0JH606Z Insertion of Pacemaker, Dual Chamber into Chest Subcutaneous Tissue and Fascia, Open Approach (ICD-10-PCS; 2023-08-13)
PROC: 02HK3JZ Insertion of Pacemaker Lead into Right Ventricle, Percutaneous Approach (ICD-10-PCS; 2023-08-13)
PROC: 02H63JZ Insertion of Pacemaker Lead into Right Atrium, Percutaneous Approach (ICD-10-PCS; 2023-08-13)
DX: I35.2 Nonrheumatic aortic (valve) stenosis with insufficiency (principal); Z00.6 Encounter for examination for normal comparison and control in clinical research program; I44.2 Atrioventricular block, complete; I48.92 Unspecified atrial flutter; E78.5 Hyperlipidemia, unspecified; I10 Essential (primary) hypertension; E03.9 Hypothyroidism, unspecified; I49.5 Sick sinus syndrome; R09.89 Other specified symptoms and signs involving the circulatory and respiratory systems; I25.10 Atherosclerotic heart disease of native coronary artery without angina pectoris; E66.9 Obesity, unspecified; Z68.32 Body mass index [BMI] 32.0-32.9, adult; N40.1 Benign prostatic hyperplasia with lower urinary tract symptoms; R33.8 Other retention of urine; Z87.891 Personal history of nicotine dependence
CPT/HCPCS: 33208; 33210; 33361; 71045; 80048; 80053; 82330; 83735; 84132; 85025; 85027; 85610; 85730; 93306; 93312; 93320; 93325